=== PATIENT | male | born 1990 | race Caucasian/White ===

== ENCOUNTER 2018-03-05 01:25 | Emergency (ER) | payer SELFPAY ==
[~2018-03-05] VITALS: Ht 165.1 cm; Wt 58.0 kg
--- NOTE | 2018-03-05 01:42 | PHYS DOC ---
Adult General Chief Complaint Chief Complaint vomiting HPI HPI 27 years old male presented to the emergency department with vomiting and diarrhea started this morning described his diarrhea as watery loose no fever no chills no urgency no frequency no hematuria Review of Systems Review of Systems Constitutional: Denies fever or chills [] Eyes: Denies change in visual acuity, redness, or eye pain [] HENT: Denies nasal congestion or sore throat [] Respiratory: Denies cough or shortness of breath [] Cardiovascular: No additional information not addressed in HPI [] GI: Denies abdominal pain, : Denies dysuria or hematuria [] Musculoskeletal: Denies back pain or joint pain [] Integument: Denies rash or skin lesions [] Neurologic: Denies headache, focal weakness or sensory changes [] Endocrine: Denies polyuria or polydipsia [] All other systems were reviewed and found to be within normal limits, except as documented in this note. Current Medications Current Medications Current Medications Medications (Trade) Dose Ordered Sig/Maria E Start Time Stop Time Status Last Admin Dose Admin Ondansetron HCl (Starter Pack - Zofran Odt) 1 startpack 1X ONCE 03/05/18 02:30 03/05/18 02:31 UNV Ondansetron HCl (Zofran) 4 mg 1X ONCE 03/05/18 02:00 03/05/18 02:01 DC 03/05/18 02:01 4 MG Sodium Chloride 1,000 ml @ 1,000 mls/hr 1X ONCE 03/05/18 02:30 03/05/18 03:29 UNV Allergies Allergies Allergies Coded Allergies Type Severity Reaction Last Updated Verified No Known Drug Allergies 03/05/18 No Physical Exam Physical Exam Constitutional: Well developed, well nourished, no acute distress, non-toxic appearance. [] HENT: Normocephalic, atraumatic, bilateral external ears normal, oropharynx moist, no oral exudates, nose normal. [] Eyes: PERRLA, EOMI, conjunctiva normal, no discharge. [] Neck: Normal range of motion, no tenderness, supple, no stridor. [] Cardiovascular:Heart rate regular rhythm, no murmur [] Lungs & Thorax: Bilateral breath sounds clear to auscultation [] Abdomen: Bowel sounds normal, soft, no tenderness, no masses, no pulsatile masses. [] Skin: Warm, dry, no erythema, no rash. [] Back: No tenderness, no CVA tenderness. [] Extremities: No tenderness, no cyanosis, no clubbing, ROM intact, no edema. [] Neurologic: Alert and oriented X 3, normal motor function, normal sensory function, no focal deficits noted. [] Psychologic: Affect normal, judgement normal, mood normal. [] Current Patient Data Vital Signs Vital Signs Date Time Temp Pulse Resp B/P (MAP) Pulse Ox O2 Delivery O2 Flow Rate FiO2 03/05/18 01:25 98.3 61 18 99 Room Air Lab Results Laboratory Tests Test 03/05/18 01:45 White Blood Count 14.2 x10^3/uL (4.0-11.0) H Red Blood Count 4.64 x10^6/uL (4.30-5.70) Hemoglobin 16.6 g/dL (13.0-17.5) Hematocrit 47.9 % (39.0-53.0) Mean Corpuscular Volume 103 fL (79-100) H Mean Corpuscular Hemoglobin 36 pg (25-35) H Mean Corpuscular Hemoglobin Concent 35 g/dL (31-37) Red Cell Distribution Width 15.1 % (11.5-14.5) H Platelet Count 148 x10^3/uL (140-400) Neutrophils (%) (Auto) 89 % (31-73) H Lymphocytes (%) (Auto) 5 % (24-48) L Monocytes (%) (Auto) 5 % (0-9) Eosinophils (%) (Auto) 0 % (0-3) Basophils (%) (Auto) 1 % (0-3) Neutrophils # (Auto) 12.6 x10^3uL (1.8-7.7) H Lymphocytes # (Auto) 0.7 x10^3/uL (1.0-4.8) L Monocytes # (Auto) 0.8 x10^3/uL (0.0-1.1) Eosinophils # (Auto) 0.0 x10^3/uL (0.0-0.7) Basophils # (Auto) 0.1 x10^3/uL (0.0-0.2) Sodium Level 141 mmol/L (136-145) Potassium Level 3.7 mmol/L (3.5-5.1) Chloride Level 95 mmol/L (98-107) L Carbon Dioxide Level 20 mmol/L (21-32) L Anion Gap 26 (6-14) H Blood Urea Nitrogen 11 mg/dL (8-26) Creatinine 1.1 mg/dL (0.7-1.3) Estimated GFR (Cockcroft-Gault) 79.7 Glucose Level 110 mg/dL (70-99) H Calcium Level 10.2 mg/dL (8.5-10.1) H EKG EKG [] Radiology/Procedures Radiology/Procedures [] Course & Med Decision Making Course & Med Decision Making Pertinent Labs and Imaging studies reviewed. (See chart for details) [] Final Impression Final Impression [] Problems: (1) Vomiting Qualifiers: Qualified Codes: R11.14 - Bilious vomiting Dragon Disclaimer Dragon Disclaimer This electronic medical record was generated, in whole or in part, using a voice recognition dictation system. ENOCH LIRA MD Mar 05, 2018 01:42
[2018-03-05] MEDS ORDERED: ONDA4TAB7 PO (01:43)
[2018-03-05 02:00] LABS: BASO # 0.1 x10^3/uL (0.0-0.2); BASO % 1 % (0-3); EOS % 0 % (0-3); HEMATOCRIT 47.9 % (39.0-53.0); HEMOGLOBIN 16.6 g/dL (13.0-17.5); LYMPH # 0.7 x10^3/uL (1.0-4.8); LYMPH % 5 % (24-48); MEAN CORPUSCULAR HEMOGLOBIN 36 pg (25-35); MEAN CORPUSCULAR HGB CONC 35 g/dL (31-37); MEAN CORPUSCULAR VOLUME 103 fL (79-100); MONO # 0.8 x10^3/uL (0.0-1.1); MONO % 5 % (0-9); NEUT # 12.6 x10^3uL (1.8-7.7); NEUT % 89 % (31-73); PLATELET COUNT 148 x10^3/uL (140-400); RED BLOOD COUNT 4.64 x10^6/uL (4.30-5.70); RED CELL DISTRIBUTION WIDTH 15.1 % (11.5-14.5); WHITE BLOOD COUNT 14.2 x10^3/uL (4.0-11.0)
[2018-03-05] MEDS ORDERED: IV NORMAL SALINE 1,000ML 1,000 ML IV ONE ×3 (02:00→03:00)
[2018-03-05] MEDS ORDERED: ONDANSETRON PF 4 MG/2 ML VIAL. IV ONE (02:00)
[2018-03-05 02:08] LABS: CALCIUM 10.2 mg/dL (8.5-10.1); CREATININE 1.1 mg/dL (0.7-1.3); GFR 79.7; POTASSIUM 3.7 mmol/L (3.5-5.1)
[2018-03-05] MEDS ORDERED: ONDANSETRON 4MG ODT 4TABLET STARTPACK. PO ONE (03:00)
[2018-03-05 03:03] VITALS: BP 121/52
== END 2018-03-05 03:20 | disposition home or self-care (01) ==
LOC: ER 01:25
DX: R11.14 Bilious vomiting (principal); R19.7 Diarrhea, unspecified
CPT/HCPCS: 36415; 80048; 85025; 96361; 96374; 99283; J2405; Q0162; J7030

== ENCOUNTER 2019-04-22 21:26 | Emergency (ER) | payer SELFPAY ==
[~2019-04-22] VITALS: Ht 165.1 cm; Wt 61.8 kg
[~2019-04-22 21:26] MED LIST: ONDA4TAB7 PO
--- NOTE | 2019-04-22 21:36 | PHYS DOC ---
Past History Past Medical History: No Pertinent History Past Surgical History: No Surgical History Smoking: Cigarettes Alcohol Use: Occasionally Drug Use: Cocaine, Marijuana, Opiates Adult General Chief Complaint Chief Complaint: NAUSEA/VOMITING/DIARRHEA.. " I been sick all day... some stomach pain... I had something like this before.. I was in here in Feb. ...a year or two ago.. I got better with fluids. and something theygave me for nausea. ...." [facility] HPI Patient is a 28 year old male who presents with above hx and complaints nausea, vomiting, malaise, fevers, generalized abdomen pain, arthralgia, and myalgia.. Patient did not get a flu vaccination this season. Patient states he had a previous similar incident back in February a year or 2 ago. He states that episode resolved with fluids and medicines given in the emergency department. Patient advise been sick for the last 3 days. Patient denies any intake of bad food. Patient denies any travel. Patient denies any specific ill contacts. Patient does smoke tobacco. Does smoke marijuana every morning when he wakes up.. Patient denies any history of colitis or inflammatory bowel disorders with him or family members. Patient does not follow with a primary care currently. Review of Systems Review of Systems Constitutional: Complaints of fever or chills [] Eyes: Denies change in visual acuity, redness, or eye pain [] HENT: Complains of nasal congestion and sore throat [] Respiratory: Complaints of a nonproductive cough Cardiovascular: No additional information not addressed in HPI [] GI: Plaints of generalized abdominal pain, nausea, vomiting,. Denies bloody stools or diarrhea [] : Denies dysuria or hematuria [] Musculoskeletal: Denies back pain or joint pain [] Integument: Denies rash or skin lesions [] Neurologic: Denies headache, focal weakness or sensory changes [] Endocrine: Denies polyuria or polydipsia [] All other systems were reviewed and found to be within normal limits, except as documented in this note. Family History Family History Noncontributory to presentation Current Medications Current Medications See nursing for home medications Allergies Allergies Allergies Coded Allergies Type Severity Reaction Last Updated Verified No Known Drug Allergies 03/05/18 No Physical Exam Physical Exam Constitutional: Moderate acute distress, non-toxic appearance. [] HENT: Normocephalic, atraumatic, bilateral external ears normal, oropharynx dry, no oral exudates, nose normal. [] Eyes: PERRLA, EOMI, conjunctiva normal, no discharge. [] Neck: Normal range of motion, no tenderness, supple, no stridor. [] Cardiovascular: Tachycardia Heart rate regular rhythm, no murmur [] Lungs & Thorax: Bilateral breath sounds equal at apex with scattered wheezes on auscultation [] Abdomen: Bowel sounds hyperactive, soft, generalized tenderness, no masses, no pulsatile masses. [] No findings of specific pain on rebound. Circumcised male testicles descended Skin: Warm, dry, no erythema, no rash. Tattoos Back: No tenderness, no CVA tenderness. [] Extremities: No tenderness, no cyanosis, no clubbing, ROM intact, no edema. [] No psoas sign. Neurologic: Alert and oriented X 3, normal motor function, normal sensory function, no focal deficits noted. [] Psychologic: Affect anxious, judgement normal, mood normal. [] EKG EKG [] Radiology/Procedures Radiology/Procedures [][address] [address] IMAGING REPORT Signed PATIENT: JACKIE BURDEN ACCOUNT: [id number] : 1990 LOCATION: ER AGE: 28 SEX: M EXAM STATUS: REG ER ORD. PHYSICIAN: BRITTNEY GOMEZ MD REASON: Chest and abdomen pain, nausea, vomiting PROCEDURE: ACUTE ABDOMEN SERIES Exam: Acute abdominal series INDICATION: Chest and abdomen pain TECHNIQUE: Frontal view of chest with upright and supine views of the abdomen Comparisons: None FINDINGS: The cardiomediastinal silhouette and pulmonary vessels are within normal limits. The lung and pleural spaces are clear. Air and stool are noted throughout the colon to level the rectum in a nonobstructive bowel gas pattern. No suspicious masses or calcifications. No free air. Visualized osseous structures are unremarkable. IMPRESSION: 1. No acute cardiopulmonary process. 2. Nonobstructive bowel gas pattern. Electronically signed by: Taisha Lawrence MD (04/22/2019 10:15 PM) [facility] DICTATED AND SIGNED BY: TAISHA LAWRENCE MD DATE: 04/22/19 2215 CC: BRITTNEY GOMEZ MD; PCP,YULY ~ Course & Med Decision Making Course & Med Decision Making Pertinent Labs and Imaging studies reviewed. (See chart for details) Patient reports marked improvement of symptoms at the end ED visit. Requesting discharge. Patient encouraged to avoid illicit drug use. Patient to push clear fluids next 2 days. No solids or milk products. May use Zofran 8 mg up to 4 times day for active vomiting. Take Tylenol and ibuprofen for discomfort. Follow-up primary care. Must have primary care review ED work up. Recommend repeat CBC to make sure current CBC abnormalities have resolved. Patient encouraged to avoid tobacco and daily marijuana use. Recommend that patient follow-up pending labs. Patient consider HIV testing dependent and risk factors. Advised patient may be presenting with early signs of hepatitis or HIV or white cell line dyscrasias. Impression: 1. Nausea and Vomiting x 3 days 2. Viral Syndrome 3. Dehydration 4. Polysubstance Abuse + Cocaine, MJ, Opiates, Tob. 5. Elevated Cristian T 1.3 and D 0.3 6. Elevated CK 510 7. Elevated Glucose 124 8. Leukocytosis 15.8 9. Hgb Elevate 17.6 10.Macrocytosis 104, Atypical Lymph , increased Gallia and Smudge Cells 11. Thrombocytopenia 133 [] Dragon Disclaimer Dragon Disclaimer This electronic medical record was generated, in whole or in part, using a voice recognition dictation system. Departure Departure: Disposition: 01 HOME/RESIDENCE PRIOR TO ADM Condition: STABLE Referrals: PCP,YULY (PCP) Scripts Ondansetron Hcl (ZOFRAN) 8 Mg Tablet 8 MG PO QIDPRN PRN for active nausea and vomiting, #30 BOTTLE Prov: BRITTNEY GOMEZ MD 04/23/19 Dragon Disclaimer This chart was dictated in whole or in part using Voice Recognition software in a busy, high-work load, and often noisy Emergency Department environment. It may contain unintended and wholly unrecognized errors or omissions. BRITTNEY GOMEZ MD Apr 22, 2019 21:36
[2019-04-22] MEDS ORDERED: IV RINGERS SOLUTION,LACTATED 1,000 ML IV SCH (21:37)
[2019-04-22] MEDS ORDERED: ONDANSETRON PF 4 MG/2 ML VIAL. IVP ONE (21:45)
[2019-04-22] MEDS ORDERED: FAMOTIDINE 20 MG/2 ML VIAL IVP ONE (21:45)
[2019-04-22 21:59] LABS: BARBITURATES NEG (NEG); BENZODIAZEPINES NEG (NEG); CANNABINOIDS POS (NEG); COCAINE POS (NEG); METHADONE NEG (NEG); OPIATES POS (NEG); PHENCYCLIDINE NEG (NEG)
[2019-04-22 22:00] LABS: AMPHETAMINE/METHAMPHETAMINE NEG (NEG)
[2019-04-22 22:10] LABS: BASO # 0.1 x10^3/uL (0.0-0.2); BASO % 0 % (0-3); EOS % 0 % (0-3); HEMATOCRIT 51.7 % (39.0-53.0); HEMOGLOBIN 17.6 g/dL (13.0-17.5); LYMPH # 1.4 x10^3/uL (1.0-4.8); LYMPH % 9 % (24-48); MEAN CORPUSCULAR HEMOGLOBIN 35 pg (25-35); MEAN CORPUSCULAR HGB CONC 34 g/dL (31-37); MEAN CORPUSCULAR VOLUME 104 fL (79-100); MONO % 13 % (0-9); NEUT # 12.4 x10^3uL (1.8-7.7); NEUT % 78 % (31-73); PLATELET COUNT 133 x10^3/uL (140-400); RED BLOOD COUNT 4.99 x10^6/uL (4.30-5.70); RED CELL DISTRIBUTION WIDTH 14.3 % (11.5-14.5); WHITE BLOOD COUNT 15.8 x10^3/uL (4.0-11.0)
[2019-04-22 22:16] LABS: BILIRUBIN,URINE MOD (NEG); CLARITY,URINE HAZY; COLOR,URINE AMBER; GLUCOSE,URINE NEG (NEG); NITRITE,URINE NEG (NEG); UROBILINOGEN,URINE 0.2 mg/dL (0.2 mg/dL)
[2019-04-22 22:17] LABS: AMORPHOUS SEDIMENT,UR PRESENT /HPF; BACTERIA,URINE FEW /HPF (0-FEW); GRANULAR CASTS,URINE OCC /HPF; HYALINE CASTS, URINE FEW /HPF; SQUAMOUS EPITHELIAL CELL,UR OCC /LPF; WBC,URINE OCC /HPF (0-4)
--- NOTE | 2019-04-22 22:18 | RAD ---
Exam: Acute abdominal series INDICATION: Chest and abdomen pain TECHNIQUE: Frontal view of chest with upright and supine views of the abdomen Comparisons: None FINDINGS: The cardiomediastinal silhouette and pulmonary vessels are within normal limits. The lung and pleural spaces are clear. Air and stool are noted throughout the colon to level the rectum in a nonobstructive bowel gas pattern. No suspicious masses or calcifications. No free air. Visualized osseous structures are unremarkable. IMPRESSION: 1. No acute cardiopulmonary process. 2. Nonobstructive bowel gas pattern. Electronically signed by: Taisha Rosenthal MD (04/22/2019 10:15 PM) [facility]
[2019-04-22 22:29] LABS: CALCIUM 9.9 mg/dL (8.5-10.1); GFR 88.3
[2019-04-22 22:32] LABS: ALBUMIN 4.6 g/dL (3.4-5.0); DIRECT BILIRUBIN 0.3 mg/dL (0.0-0.2); TOTAL BILIRUBIN 1.3 mg/dL (0.2-1.0)
[2019-04-22 22:33] LABS: POTASSIUM 3.7 mmol/L (3.5-5.1)
[2019-04-22] MEDS ORDERED: MAGNESIUM HYDROXIDE 2,400 MG/30 ML ORAL.SUSP. PO ONE (22:45)
[2019-04-22 23:19] LABS: % ATYL 4 % (0-0); % BANDS 2 % (0-9); % LYMPHS 10 % (24-48); % MONOS 16 % (0-10); % SEGS 68 % (35-66); PLT ESTIMATE DECREASED (ADEQUATE); SMUDGE CELLS PRESENT; STOMATOCYTES FEW
[2019-04-22 23:22] LABS: INFLUENZA A PATIENT NEGATIVE (NEGATIVE); INFLUENZA B PATIENT NEGATIVE (NEGATIVE)
[2019-04-23] MEDS ORDERED: IV RINGERS SOLUTION,LACTATED 1,000 ML IV ONE
[2019-04-23] MEDS ORDERED: ONDA8TAB9 PO (00:03)
[2019-04-23 00:18] VITALS: BP 126/83
== END 2019-04-23 00:36 | disposition home or self-care (01) ==
LOC: ER 21:26
DX: B34.9 Viral infection, unspecified (principal); E86.0 Dehydration; D69.6 Thrombocytopenia, unspecified; F11.10 Opioid abuse, uncomplicated; F12.10 Cannabis abuse, uncomplicated; F14.10 Cocaine abuse, uncomplicated; D72.829 Elevated white blood cell count, unspecified; F17.210 Nicotine dependence, cigarettes, uncomplicated
CPT/HCPCS: 36415; 74022; 80048; 80076; 80307; 81001; 82150; 82550; 83690; 84484; 85007; 85025; 85610; 85730; 86705; 86709; 86803; 87340; 87804; 96361; 96374; 96375; 99285; J2405; J3490; J7120

== ENCOUNTER 2019-08-28 08:58 | Emergency (ER) | payer SELFPAY ==
[~2019-08-28] VITALS: Ht 165.1 cm; Wt 61.4 kg
[~2019-08-28 08:58] MED LIST changes: +ONDA8TAB9 PO
[2019-08-28 09:05] VITALS: BP 136/98
[2019-08-28] MEDS ORDERED: IV NORMAL SALINE 1,000ML 1,000 ML IV SCH (09:15)
--- NOTE | 2019-08-28 09:20 | PHYS DOC ---
Past History Past Medical History: No Pertinent History Past Surgical History: No Surgical History Smoking: Cigarettes Alcohol Use: Occasionally Drug Use: Cocaine, Marijuana, Opiates General Adult EDM: Chief Complaint: GI PROBLEM HPI: HPI: Patient is a 29-year-old male who presents to the emergency department for evaluation. He states that he has had abdominal problems for the past several years, having some vomiting in the morning, until he starts drinking alcohol again, as well as hematochezia which has been present on and off for years. He states that he has not had any dizziness or lightheadedness. He is having no new symptoms at this time, but states his family urged him to come to the emergency department just to "get checked out". He states his last drink was at 1 AM. He drinks at least a pint a day, as well as beers throughout the day, and he drinks a liter of hard liquor at night as well. He states he has been doing this for years. He has not had any hematemesis. There are no alleviating or exacerbating factors to his symptoms. He states he saw a doctor recently for tremors and anxiety and was put on some anxiety medicationBuSpar. He states that he did discuss his alcohol use with the doctor and was told "he needs to cut back". Review of Systems: Review of Systems: Constitutional: Denies fever or chills Eyes: Denies change in visual acuity HENT: Denies nasal congestion or sore throat Respiratory: Denies cough or shortness of breath Cardiovascular: Denies chest pain or edema GI: As per HPI : Denies dysuria Musculoskeletal: Denies back pain or joint pain Integument: Denies rash Neurologic: Denies headache, focal weakness or sensory changes Endocrine: Denies polyuria or polydipsia Lymphatic: Denies swollen glands Psychiatric: Denies depression or anxiety Heart Score: Risk Factors: Risk Factors: DM, Current or recent (<one month) smoker, HTN, HLP, family history of CAD, obesity. Risk Scores: Score 0 - 3: 2.5% MACE over next 6 weeks - Discharge Home Score 4 - 6: 20.3% MACE over next 6 weeks - Admit for Clinical Observation Score 7 - 10: 72.7% MACE over next 6 weeks - Early Invasive Strategies Allergies: Allergies: Allergies Coded Allergies Type Severity Reaction Last Updated Verified No Known Drug Allergies 03/05/18 No Physical Exam: PE: PHYSICAL EXAM: CONSTITUTIONAL: Well developed, well nourished HEAD: normocephalic, atraumatic EENT: PERRL, EOMI. Conjunctivae normal color, sclerae non-icteric; moist mucous membranes. NECK: Supple, non-tender; no meningismus. LUNGS: Lungs CTA, breathing even and unlabored. Normal air movement. HEART: Regular rate and rhythm, no murmur CHEST: No deformity; non-tender ABDOMEN: The abdomen is soft, there is very mild right upper quadrant tenderness to palpation without rebound or guarding, the remainder the abdomen is soft and non-tender, no masses or bruits. Normal bowel sounds are present. EXTREM: Normal ROM; no deformity, no calf tenderness. Normal pulses palpable in all extremities. There is no pedal edema. SKIN: No rash; no diaphoresis NEURO: Alert; normal speech and cognition; CN's grossly intact; strength grossly intact without focal deficit. BACK: No CVA TTP. Current Patient Data: Labs: Laboratory Tests Test 08/28/19 09:20 White Blood Count 6.4 x10^3/uL Red Blood Count 4.44 x10^6/uL Hemoglobin 16.5 g/dL Hematocrit 48.2 % Mean Corpuscular Volume 109 fL Mean Corpuscular Hemoglobin 37 pg Mean Corpuscular Hemoglobin Concent 34 g/dL Red Cell Distribution Width 16.0 % Platelet Count 94 x10^3/uL Neutrophils (%) (Auto) 38 % Lymphocytes (%) (Auto) 41 % Monocytes (%) (Auto) 15 % Eosinophils (%) (Auto) 4 % Basophils (%) (Auto) 1 % Neutrophils # (Auto) 2.4 x10^3uL Lymphocytes # (Auto) 2.6 x10^3/uL Monocytes # (Auto) 1.0 x10^3/uL Eosinophils # (Auto) 0.3 x10^3/uL Basophils # (Auto) 0.1 x10^3/uL Urine Collection Type Unknown Urine Color Yellow Urine Clarity Hazy Urine pH 5.5 Urine Specific [place] >=1.030 Urine Protein >100 mg/dl Urine Glucose (UA) Neg mg/dL Urine Ketones (Stick) Trace mg/dL Urine Blood Trace Urine Nitrite Neg Urine Bilirubin Neg Urine Urobilinogen Dipstick 0.2 mg/dL Urine Leukocyte Esterase Neg Urine RBC 3-5 /HPF Urine WBC Occ /HPF Urine Squamous Epithelial Cells Few /LPF Urine Bacteria 0 /HPF Urine Mucus Marked /LPF Sodium Level 142 mmol/L Potassium Level 3.6 mmol/L Chloride Level 101 mmol/L Carbon Dioxide Level 27 mmol/L Anion Gap 14 Blood Urea Nitrogen 3 mg/dL Creatinine 0.8 mg/dL Estimated GFR (Cockcroft-Gault) 113.5 BUN/Creatinine Ratio 4 Glucose Level 130 mg/dL Calcium Level 9.0 mg/dL Magnesium Level 1.7 mg/dL Total Bilirubin 0.2 mg/dL Aspartate Amino Transf (AST/SGOT) 206 U/L Alanine Aminotransferase (ALT/SGPT) 82 U/L Alkaline Phosphatase 97 U/L Total Protein 8.3 g/dL Albumin 4.0 g/dL Albumin/Globulin Ratio 0.9 Lipase 120 U/L Urine Opiates Screen Neg Urine Methadone Screen Neg Urine Barbiturates Neg Urine Phencyclidine Screen Neg Urine Amphetamine/Methamphetamine Neg Urine Benzodiazepines Screen Neg Urine Cocaine Screen Neg Urine Cannabinoids Screen Pos Ethyl Alcohol Level 269 mg/dL Urine Ethyl Alcohol Pos Current Medications Medications (Trade) Dose Ordered Sig/Maria E Route PRN Reason Start Time Stop Time Status Last Admin Dose Admin Sodium Chloride 1,000 ml @ 1,000 mls/hr Q1H IV 08/28/19 09:15 08/28/19 10:14 DC 08/28/19 09:24 EKG: EKG: [] Radiology/Procedures: Radiology/Procedures: [] Course & Med Decision Making: Course & Med Decision Making Pertinent Lab studies reviewed. (See chart for details) [] The patient's condition remains stable. I discussed the importance of alcohol rehab and abstinence of alcohol for his long-term health, consequences of failure to do so, the need for close outpatient follow-up with GI and return precautions in detail. He will be given resources for alcohol rehab. Dragon Disclaimer: Dragmyke Disclaimer: This electronic medical record was generated, in whole or in part, using a voice recognition dictation system. Departure Departure: Impression: Primary Impression: Alcoholism Additional Impressions: Abdominal pain Alcoholic hepatitis Disposition: HOME/RESIDENCE PRIOR TO ADM Condition: STABLE Referrals: MARIAH JOHNSTON MD Patient Instructions: Alcohol Problems, Alcoholic Hepatitis-Brief, Alcoholic Li med Disease, [id number], Chronic Alcoholism Additional Instructions: It is critically important that you stop drinking alcohol, failure to do so will result in liver failure with long-term health consequences including early . Use the resources provided to get professional help quitting alcohol. It is difficult to do so on your own. Follow-up with gastroenterology at [facility]. Please call [phone] to schedule an appointment. Justification of Admission: Justification of Admission: Justification of Admission Dx: N/A EDDIE COUCH MD Aug 28, 2019 09:20
[2019-08-28 09:52] LABS: BASO # 0.1 x10^3/uL (0.0-0.2); BASO % 1 % (0-3); EOS # 0.3 x10^3/uL (0.0-0.7); EOS % 4 % (0-3); HEMATOCRIT 48.2 % (39.0-53.0); HEMOGLOBIN 16.5 g/dL (13.0-17.5); LYMPH # 2.6 x10^3/uL (1.0-4.8); LYMPH % 41 % (24-48); MEAN CORPUSCULAR HEMOGLOBIN 37 pg (25-35); MEAN CORPUSCULAR HGB CONC 34 g/dL (31-37); MEAN CORPUSCULAR VOLUME 109 fL (79-100); MONO % 15 % (0-9); NEUT # 2.4 x10^3uL (1.8-7.7); NEUT % 38 % (31-73); PLATELET COUNT 94 x10^3/uL (140-400); RED BLOOD COUNT 4.44 x10^6/uL (4.30-5.70); WHITE BLOOD COUNT 6.4 x10^3/uL (4.0-11.0)
[2019-08-28 10:00] LABS: CREATININE 0.8 mg/dL (0.7-1.3); GFR 113.5; POTASSIUM 3.6 mmol/L (3.5-5.1)
[2019-08-28 10:07] LABS: ALBUMIN/GLOBULIN RATIO 0.9 (1.0-1.7); MAGNESIUM 1.7 mg/dL (1.8-2.4); TOTAL BILIRUBIN 0.2 mg/dL (0.2-1.0); TOTAL PROTEIN 8.3 g/dL (6.4-8.2)
[2019-08-28 10:15] LABS: BARBITURATES NEG (NEG); BENZODIAZEPINES NEG (NEG); CANNABINOIDS POS (NEG); COCAINE NEG (NEG); METHADONE NEG (NEG); OPIATES NEG (NEG); PHENCYCLIDINE NEG (NEG)
[2019-08-28 10:16] LABS: CLARITY,URINE HAZY; COLOR,URINE YELLOW
[2019-08-28 10:17] LABS: BACTERIA,URINE 0 /HPF (0-FEW); BILIRUBIN,URINE NEG (NEG); GLUCOSE,URINE NEG (NEG); NITRITE,URINE NEG (NEG); SQUAMOUS EPITHELIAL CELL,UR FEW /LPF; UROBILINOGEN,URINE 0.2 mg/dL (0.2 mg/dL); WBC,URINE OCC /HPF (0-4)
[2019-08-28 10:37] LABS: AMPHETAMINE/METHAMPHETAMINE NEG (NEG)
== END 2019-08-28 11:14 | disposition home or self-care (01) ==
LOC: ER 08:58
DX: K70.10 Alcoholic hepatitis without ascites (principal); F10.20 Alcohol dependence, uncomplicated; R10.11 Right upper quadrant pain; R11.10 Vomiting, unspecified; F17.210 Nicotine dependence, cigarettes, uncomplicated; Y90.8 Blood alcohol level of 240 mg/100 ml or more
CPT/HCPCS: 36415; 80053; 80307; 81001; 83690; 83735; 85025; 85610; 85730; 96360; 99283; G0480; 96361; J7030

== ENCOUNTER 2019-10-01 08:31 | Inpatient (IN) | payer SELFPAY ==
[~2019-10-01] VITALS: Ht 165.1 cm; Wt 59.7 kg
[2019-10-01] MEDS ORDERED: ONDANSETRON PF 4 MG/2 ML VIAL. IVP ONE (09:00)
[2019-10-01] MEDS ORDERED: IV NORMAL SALINE 1,000ML 1,000 ML IV ONE ×2 (09:00→10:00)
[2019-10-01 09:15] LABS: BASO # 0.1 x10^3/uL (0.0-0.2); BASO % 0 % (0-3); EOS % 0 % (0-3); HEMOGLOBIN 17.9 g/dL (13.0-17.5); LYMPH # 0.8 x10^3/uL (1.0-4.8); LYMPH % 4 % (24-48); MEAN CORPUSCULAR HEMOGLOBIN 38 pg (25-35); MEAN CORPUSCULAR HGB CONC 35 g/dL (31-37); MEAN CORPUSCULAR VOLUME 110 fL (79-100); MONO # 1.2 x10^3/uL (0.0-1.1); MONO % 7 % (0-9); NEUT # 15.7 x10^3uL (1.8-7.7); NEUT % 88 % (31-73); PLATELET COUNT 123 x10^3/uL (140-400); RED BLOOD COUNT 4.71 x10^6/uL (4.30-5.70); RED CELL DISTRIBUTION WIDTH 16.9 % (11.5-14.5); WHITE BLOOD COUNT 17.7 x10^3/uL (4.0-11.0)
[2019-10-01 09:26] LABS: CALCIUM 10.1 mg/dL (8.5-10.1); CREATININE 1.6 mg/dL (0.7-1.3); POTASSIUM 3.8 mmol/L (3.5-5.1)
[2019-10-01 09:31] LABS: ALBUMIN 4.7 g/dL (3.4-5.0); ALBUMIN/GLOBULIN RATIO 0.9 (1.0-1.7); TOTAL PROTEIN 9.8 g/dL (6.4-8.2)
[2019-10-01] MEDS ORDERED: IV DEXTROSE 5 %-0.45 % NACL 1,000 ML IV ONE (10:00)
--- NOTE | 2019-10-01 10:13 | PHYS DOC ---
Past History Past Medical History: Other Additional Past Medical Histor: alcohol abuse Past Surgical History: No Surgical History Smoking: Cigarettes Alcohol Use: Heavy Drug Use: Cocaine, Marijuana, Opiates General Adult EDM: Chief Complaint: NAUSEA/VOMITING/DIARRHEA HPI: HPI: Patient is a 29 old male presenting with nausea vomiting abdominal pain patient drinks heavily at least a pint a day if not more. He has not drank in 3 days he is having a lot of vomiting he said he just turned, dark brown no blood that he saw although does not know the color of the stool describes diffuse abdominal pain worse in the epigastric area. Slowly getting worse he feels like it is abdominal muscle pain from vomiting so much no chest pain or shortness of breath past medical history none medications none allergies none social history just marijuana no other drugs Review of Systems: Review of Systems: Constitutional: Denies fever or chills Eyes: Denies change in visual acuity HENT: Denies nasal congestion or sore throat Respiratory: Denies cough or shortness of breath Cardiovascular: Denies chest pain or edema GI: Neurologic: Denies headache, focal weakness or sensory changes Endocrine: Denies polyuria or polydipsia Lymphatic: Denies swollen glands Psychiatric: Denies depression or anxiety Heart Score: Risk Factors: Risk Factors: DM, Current or recent (<one month) smoker, HTN, HLP, family history of CAD, obesity. Risk Scores: Score 0 - 3: 2.5% MACE over next 6 weeks - Discharge Home Score 4 - 6: 20.3% MACE over next 6 weeks - Admit for Clinical Observation Score 7 - 10: 72.7% MACE over next 6 weeks - Early Invasive Strategies Current Medications: Current Meds: Current Medications Medications (Trade) Dose Ordered Sig/Maria E Start Time Stop Time Status Last Admin Dose Admin Dextrose/Sodium Chloride 1,000 ml @ 125 mls/hr 1X ONCE 10/01/19 10:00 10/01/19 17:59 UNV Lorazepam (Ativan Inj) 2 mg 1X ONCE 10/01/19 10:00 10/01/19 10:01 UNV Ondansetron HCl (Zofran) 4 mg 1X ONCE 10/01/19 09:00 10/01/19 09:01 DC 10/01/19 09:05 4 MG Sodium Chloride 1,000 ml @ 1,000 mls/hr 1X ONCE 7/15/20 10:00 10/01/19 10:59 UNV Allergies: Allergies: Allergies Coded Allergies Type Severity Reaction Last Updated Verified No Known Drug Allergies 10/01/19 No Physical Exam: PE: Constitutional: Well developed, ill appearing shaky and tremulous HENT: Normocephalic, atraumatic, bilateral external ears normal, oropharynx moist, no oral exudates, nose normal. [] Eyes: PERRLA, EOMI, conjunctiva normal, no discharge. [] Neck: Normal range of motion, no tenderness, supple, no stridor. [] Cardiovasculatachy no murmur noted. Lungs & Thorax: Bilateral breath sounds clear to auscultation [] Abdomen: Bowel sounds normal, soft, diffuse but mostly epigastric tenderness, no masses, no pulsatile masses. [] Skin: Warm, dry, no erythema, no rash. [] Back: No tenderness, no CVA tenderness. [] Extremities: No tenderness, no cyanosis, no clubbing, ROM intact, no edema. [] Neurologic: Alert and oriented X 3, normal motor function, normal sensory function, no focal deficits noted. [] Psychologic: Affect normal, judgement normal, mood normal. [] Current Patient Data: Labs: Laboratory Tests Test 10/01/19 08:59 White Blood Count 17.7 x10^3/uL (4.0-11.0) H Red Blood Count 4.71 x10^6/uL (4.30-5.70) Hemoglobin 17.9 g/dL (13.0-17.5) H Hematocrit 52.0 % (39.0-53.0) Mean Corpuscular Volume 110 fL (79-100) H Mean Corpuscular Hemoglobin 38 pg (25-35) H Mean Corpuscular Hemoglobin Concent 35 g/dL (31-37) Red Cell Distribution Width 16.9 % (11.5-14.5) H Platelet Count 123 x10^3/uL (140-400) L Neutrophils (%) (Auto) 88 % (31-73) H Lymphocytes (%) (Auto) 4 % (24-48) L Monocytes (%) (Auto) 7 % (0-9) Eosinophils (%) (Auto) 0 % (0-3) Basophils (%) (Auto) 0 % (0-3) Neutrophils # (Auto) 15.7 x10^3uL (1.8-7.7) H Lymphocytes # (Auto) 0.8 x10^3/uL (1.0-4.8) L Monocytes # (Auto) 1.2 x10^3/uL (0.0-1.1) H Eosinophils # (Auto) 0.0 x10^3/uL (0.0-0.7) Basophils # (Auto) 0.1 x10^3/uL (0.0-0.2) Platelet Estimate Pending Sodium Level 141 mmol/L (136-145) Potassium Level 3.8 mmol/L (3.5-5.1) Chloride Level 91 mmol/L (98-107) L Carbon Dioxide Level 13 mmol/L (21-32) L Anion Gap 37 (6-14) H Blood Urea Nitrogen 15 mg/dL (8-26) Creatinine 1.6 mg/dL (0.7-1.3) H Estimated GFR (Cockcroft-Gault) 51.0 BUN/Creatinine Ratio 9 (6-20) Glucose Level 102 mg/dL (70-99) H Calcium Level 10.1 mg/dL (8.5-10.1) Total Bilirubin 1.0 mg/dL (0.2-1.0) Aspartate Amino Transferase (AST) 134 U/L (15-37) H Alanine Aminotransferase (ALT) 49 U/L (16-63) Alkaline Phosphatase 138 U/L (46-116) H Total Protein 9.8 g/dL (6.4-8.2) H Albumin 4.7 g/dL (3.4-5.0) Albumin/Globulin Ratio 0.9 (1.0-1.7) L Lipase 58 U/L (73-393) L Vital Signs: Vital Signs Date Time Temp Pulse Resp B/P (MAP) Pulse Ox O2 Delivery O2 Flow Rate FiO2 10/01/19 09:52 122 18 126/87 (100) 98 Room Air 10/01/19 08:31 98.0 On my evaluation the pulse was 145 EKG: EKG: EKG showed a very likely sinus tach QTc 416 no STEMI [] Radiology/Procedures: Radiology/Procedures: [] Impressions: Impression: 1. There is no significant localized inflammatory type change about the bowel, possible degree of long segment distal small bowel wall thickening and also of the ascending colon as could be seen with enterocolitis in the appropriate clinical setting. There is no CT evidence of acute appendicitis. 2. There is diffuse prominent hepatic steatosis. There is appearance of degree of distal esophageal wall thickening which could be seen with esophagitis in the appropriate clinical setting. 3. 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 Electronically signed by: Shayne Washington MD (10/01/2019 10:54 AM) [id number] Course & Med Decision Making: Course & Med Decision Making Pertinent Labs and Imaging studies reviewed. (See chart for details) [] 29-year-old male with alcohol withdrawal vomiting abdominal discomfort likely AKA severely elevated anion gap of 37 bicarb is only 13 added on lactic acid acetaminophen and salicylate CT abdomen pelvis second liter of saline start with D5 half-normal for maintenance as well to treat the likely alcoholic ketoacidosis add on urinalysis patient will require admission heart rate is still in the 120s at rest goes up to 140 when he talks to me on reevaluation at 10 AM. Lactic acid was mildly elevated patient did receive aggressive IV fluid but I believe that lactic acid is more related to dehydration in the setting of alcohol withdrawal rather than acute sepsis. Patient felt somewhat better in the emergency room after treatment noted the vomiting there was some kind of dark brown color to it esophagitis noted on CT does not know the color of stool but with hemoglobin of 17 I doubt an acute GI bleed Protonix bolus was given in the emergency room. Added on blood cultures as well as ceftriaxone and Flagyl to cover for the possible diagnosis of enterocolitis that was seen on CT scan. Diagnosis: Alcoholic ketoacidosis, hypomagnesemia, alcohol withdrawal. I spoke with Dr. Paz at 11:15 AM accepted the patient for admission. Pete Disclaimer: Pete Disclaimer: This electronic medical record was generated, in whole or in part, using a voice recognition dictation system. Departure Departure: Impression: Primary Impression: Alcohol withdrawal Additional Impression: Alcoholic ketoacidosis Disposition: ADMITTED INPATIENT Admitting Physician: Bryn Sepulveda Condition: STABLE Referrals: PCP,NO (PCP) Justification of Admission: Justification of Admission: Justification of Admission Dx: Yes Comments: alcoholic ketoacidosis with anion gap 37. MOHSEN BORGES MD Oct 01, 2019 10:13
[2019-10-01 10:24] LABS: ACETAMIN < 2.0 mcg/mL (10-30); SALIC < 2.8 mg/dL (2.8-20.0)
[2019-10-01] MEDS ORDERED: IOHEXOL 300 MG/ML 75 ML VIAL. IV ONE (10:30)
--- NOTE | 2019-10-01 10:57 | RAD ---
CT abdomen and pelvis with contrast History: Diffuse abdominal pain, elevated WBC Technique: After the administration of intravenous contrast, CT imaging was performed of the abdomen and pelvis. No oral contrast was given. Multiplanar images are reviewed. Exposure: One or more of the following individualized dose reduction techniques were utilized for this examination: 1. Automated exposure control 2. Adjustment of the mA and/or kV according to patient size 3. Use of iterative reconstruction technique. Comparison: None Findings: There is motion degradation. There is no significant abnormality of the limited visualized lung bases. There is appearance of degree of distal esophageal wall thickening. There is diffuse prominent hepatic steatosis. Gallbladder is present without obvious intraluminal abnormality by CT. No significant focal abnormality is identified of the pancreas or spleen. Both kidneys enhance, no hydronephrosis. Accurate evaluation of bowel is limited without oral contrast. Bowel is not significantly dilated. No free air or free fluid is identified. There is appearance of degree of long segment distal small bowel wall thickening although poorly characterized on this exam. There could also be degree of ascending colonic wall thickening although not well distended for exam. Normal caliber appendix is believed to be visualized without adjacent localized inflammatory change. There is a subtle nonspecific lytic focus of the left iliac bone about 0.9 cm image 56 series 2. There is left S1 spondylolysis, transitional anatomy of the lumbar spine. Urinary bladder is somewhat distended. Impression: 1. There is no significant localized inflammatory type change about the bowel, possible degree of long segment distal small bowel wall thickening and also of the ascending colon as could be seen with enterocolitis in the appropriate clinical setting. There is no CT evidence of acute appendicitis. 2. There is diffuse prominent hepatic steatosis. There is appearance of degree of distal esophageal wall thickening which could be seen with esophagitis in the appropriate clinical setting. 3. 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 Electronically signed by: Shayne Washington MD (10/01/2019 10:54 AM) [id number]
[2019-10-01] MEDS ORDERED: MAGNESIUM SULFATE 1GM 100 ML IV ONE (11:15)
[2019-10-01] MEDS ORDERED: PANTOPRAZOLE IV 40 MG VIAL. IVP ONE (11:15)
[2019-10-01] MEDS ORDERED: cefTRIAXone SODIUM 1 GM VIAL ONE (11:42)
[2019-10-01] MEDS ORDERED: IV NORMAL SALINE 50ML 50 ML ONE (11:42)
[2019-10-01 12:16] LABS: BARBITURATES NEG (NEG); BENZODIAZEPINES NEG (NEG); CANNABINOIDS NEG (NEG); COCAINE NEG (NEG); METHADONE NEG (NEG); OPIATES NEG (NEG); PHENCYCLIDINE NEG (NEG)
[2019-10-01 12:19] LABS: BILIRUBIN,URINE NEG (NEG); CLARITY,URINE CLEAR; COLOR,URINE YELLOW; GLUCOSE,URINE NEG (NEG); NITRITE,URINE NEG (NEG); UROBILINOGEN,URINE 0.2 mg/dL (0.2 mg/dL)
[2019-10-01 12:20] LABS: BACTERIA,URINE 0 /HPF (0-FEW); HYALINE CASTS, URINE MANY /HPF; WBC,URINE OCC /HPF (0-4)
[2019-10-01 12:31] LABS: AMPHETAMINE/METHAMPHETAMINE NEG (NEG)
[2019-10-01] MEDS ORDERED: diphenhydrAMINE 50 MG/ML VIAL IVP PRN (13:00)
[2019-10-01] MEDS ORDERED: LORazepam 1 MG TABLET PO PRN (13:00)
[2019-10-01] MEDS ORDERED: cloNIDine HCL 0.1 MG TABLET PO PRN (13:00)
[2019-10-01] MEDS ORDERED: chlordiazePOXIDE HCL 25 MG CAPSULE PO PRN ×2 (13:00)
[2019-10-01] MEDS ORDERED: HALOPERIDOL LACT 5 MG/ML VIAL. IM PRN (13:00)
--- NOTE | 2019-10-01 13:12 | EKG ---
[address] [address] Test Date: 2019-10-01 Test Time: 08:49:02 Pat Name: JACKIE BURDEN Department: Room: Gender: M Learning And Development Specialist: : 1990 Requested By: MOHSEN BORGES Order Number: [id number] Reading MD: Measurements Intervals Media Rate: 149 P: FL: QRS: 94 QRSD: 74 T: 64 QT: 262 QTc: 416 Interpretive Statements SUPRAVENTRICULAR TACHYCARDIA RIGHTWARD AXIS NO SPECIFIC ECG ABNORMALITIES RI6.02 No previous ECG available for comparison
[2019-10-01] MEDS ORDERED: MVI, ADULT NO.4 WITH VIT K 10 ML, THIAMINE INJ 100 MG, FOLIC ACID INJ 1 MG in IV NORMAL... IV SCH ×4 (14:00)
[2019-10-01 14:29] VITALS: BP 110/72
[2019-10-01 14:44] LABS: ALBUMIN 3.5 g/dL (3.4-5.0); DIRECT BILIRUBIN 0.2 mg/dL (0.0-0.2); TOTAL BILIRUBIN 0.7 mg/dL (0.2-1.0); TOTAL PROTEIN 7.5 g/dL (6.4-8.2)
[2019-10-01 16:35] LABS: % BANDS 4 % (0-9); % LYMPHS 4 % (24-48); % MONOS 3 % (0-10); % SEGS 89 % (35-66)
[2019-10-01 16:36] LABS: PLT ESTIMATE DECREASED (ADEQUATE)
[2019-10-01] MEDS: LORazepam 1 MG TABLET PO PRN ×2 (17:27→21:11)
[2019-10-01] MEDS ORDERED: ONDANSETRON ODT 4 MG TAB.RAPDIS PO PRN (18:15)
--- NOTE | 2019-10-01 18:36 | HP ---
ADMIT DATE: 10/01/2019 HISTORY OF PRESENT ILLNESS: The patient is a 29-year-old male patient who came to the Emergency Room complaining of nausea, vomiting and diarrhea. He also complained of abdominal pain. He apparently is drinking alcohol heavily, at least a pint a day if not more. He has not drunk in the last 3 days and he is having lots of vomiting. He said that the vomitus or the emesis was just dark brown, no blood that he saw, although does not know the color of his stools. He has diffuse abdominal pain, worse in the epigastric area. His symptoms have been slowly getting worse; however, he denied any chest pain, shortness of breath. He was extensively investigated in the Emergency Room. He has had mild lactic acidosis and leukocytosis. His chemistry showed he has also slightly elevated creatinine and deranged liver enzyme. His AST and alkaline phosphatase are elevated. The ALT and total bilirubin were normal. His total protein was 9.8, albumin was 4.7. His lipase was 58. Urinalysis was essentially unremarkable and his CT scan of the abdomen and pelvis showed that there are no significant localized inflammatory type changes about the bowel, possible degree of long segment distal small bowel wall thickening and also the ascending colon as could be seen with enterocolitis in the appropriate clinical setting. There is no CT scan evidence of acute appendicitis, diffuse prominent hepatic steatosis. There is appearance of the degree of distal esophageal wall thickening, which could be seen ____ in the appropriate clinical setting. There is spondylosis in the left at what is considered S1 transitional anatomy of the lumbar spine and basically was admitted with diagnosis of alcohol withdrawal together with possible alcoholic ketoacidosis, probably esophagitis. His anion gap was 37, was started on alcohol withdrawal protocol, has received about 2 liters of fluid and he is now getting a banana bag and he is on alcohol withdrawal protocol. PAST MEDICAL HISTORY: Unremarkable except for alcohol abuse and marijuana abuse. PAST SURGICAL HISTORY: Significant for apparently surgery during the childhood on his heart probably congenital heart disease. ALLERGIES: He has no known drug allergies. MEDICATIONS: He is currently on no medication. FAMILY HISTORY: Noncontributory. SOCIAL HISTORY: He is [id number] dad, has 4 children. He continues to smoke cigarettes as well as marijuana. He abuse also cocaine and opiates. He drinks more than a pint of alcohol. REVIEW OF SYSTEMS: As per history of present illness. PHYSICAL EXAMINATION GENERAL: When I saw him, he was clearly very tremulous, but there is no pallor or jaundice. He was not cyanosed. No lymphadenopathy, no thyromegaly. No jugular venous distention. No limb edema. VITAL SIGNS: His heart rate was 116, blood pressure was 132/73, temperature was 98.6, respiratory rate 20, and oxygen saturation was 97%. HEAD, EYES, EARS, NOSE AND THROAT: Showed normocephalic and atraumatic. NECK: Supple. HEART: Showed normal first and second heart sounds. No gallop or murmur. CHEST: Clear to auscultation. No crepitation or rhonchi. ABDOMEN: Slightly distended, soft with tenderness mostly in the epigastric area. There is no guarding or rigidity. No organomegaly. All hernial orifice intact. Bowel sounds normal. NEUROLOGIC: He is awake, alert, but clearly very tremulous. All his cranial nerves are intact. EXTREMITIES: He moves extremities without difficulty. LABORATORY DATA: His lab work on arrival showed a serum sodium 141, potassium 3.8, chloride 91, bicarbonate 13, anion gap of 37, BUN 15, creatinine 1.6. His estimated GFR was 51 mL per minute, his glucose was 102, calcium was 10.1. Lactic acid was 2.5, magnesium was 1.7. Total bilirubin was 1. AST, ALT, alkaline phosphatase were elevated. His total protein was 9.8, albumin was 4.7 and lipase was 58. His urinalysis was unremarkable and toxic screen was negative. ASSESSMENT AND PLAN: In summary, this is a 29-year-old male patient who was admitted with alcohol withdrawal and also alcoholic ketoacidosis. He does have slightly impaired kidney function with a creatinine of 1.6, also impaired liver enzymes. We will plan to repeat his lab work this evening and again tomorrow morning and continue with alcohol withdrawal protocol as well as banana bag. ESTELLA JARQUIN MD DR: NACHO/kavitha JOB#: [id number] / [id number]
[2019-10-01 18:51] VITALS: BP 120/77
[2019-10-01] MEDS: NICOTINE 7MG PATCH. TD SCH (20:11)
[2019-10-01 22:09] LABS: CALCIUM 8.1 mg/dL (8.5-10.1); CREATININE 1.1 mg/dL (0.7-1.3); GFR 78.6; MAGNESIUM 2.1 mg/dL (1.8-2.4); POTASSIUM 3.8 mmol/L (3.5-5.1)
[2019-10-01 22:53] VITALS: BP 129/84
[2019-10-01] MEDS ORDERED: ACETAMINOPHEN 325 MG TABLET PO PRN (23:15)
[2019-10-02 05:46] VITALS: BP 121/81
[2019-10-02 06:33] LABS: HEMATOCRIT 36.9 % (39.0-53.0); HEMOGLOBIN 12.8 g/dL (13.0-17.5); RED BLOOD COUNT 3.33 x10^6/uL (4.30-5.70); RED CELL DISTRIBUTION WIDTH 17.1 % (11.5-14.5); WHITE BLOOD COUNT 8.4 x10^3/uL (4.0-11.0)
[2019-10-02 06:41] LABS: ALBUMIN/GLOBULIN RATIO 0.8 (1.0-1.7); CALCIUM 8.1 mg/dL (8.5-10.1); CREATININE 0.8 mg/dL (0.7-1.3); GFR 113.5; POTASSIUM 3.5 mmol/L (3.5-5.1); TOTAL BILIRUBIN 0.7 mg/dL (0.2-1.0); TOTAL PROTEIN 6.7 g/dL (6.4-8.2)
[2019-10-02] MEDS ORDERED: MAGNESIUM OXIDE 400 MG TABLET PO ONE (08:45)
[2019-10-02] MEDS ORDERED: THIAMINE 100 MG TABLET. PO ONE (08:45)
[2019-10-02] MEDS ORDERED: MULTIVITAMIN with MINERAL TABLET. PO ONE (08:45)
[2019-10-02] MEDS: NICOTINE 7MG PATCH. TD SCH (09:00)
== END 2019-10-02 10:00 | disposition home or self-care (01) | DRG 641 ==
LOC: ER 08:31 → 1 SOUTH 11:18
PROVIDERS: ADMIT Internal Medicine; ATTEND Internal Medicine
DX: E87.2 Acidosis (principal); Y90.0 Blood alcohol level of less than 20 mg/100 ml; F17.210 Nicotine dependence, cigarettes, uncomplicated; K22.9 Disease of esophagus, unspecified; K76.0 Fatty (change of) liver, not elsewhere classified; N28.9 Disorder of kidney and ureter, unspecified; D72.829 Elevated white blood cell count, unspecified; F10.10 Alcohol abuse, uncomplicated; Z20.828 Contact with and (suspected) exposure to other viral communicable diseases
CPT/HCPCS: 36415; 74177; 80048; 80053; 80076; 80307; 80329; 81001; 83605; 83690; 83735; 84436; 85007; 85025; 85027; 87040; 93005; 96361; 96365; 96367; 96375; 96376; 99285; 99406; C9113; G0480; J0696; J2060; J2405; J3475; Q9967; J7030; U0003-CS

== ENCOUNTER 2020-02-17 03:40 | Emergency (ER) | payer SELFPAY ==
[~2020-02-17] VITALS: Ht 152.4 cm; Wt 59.0 kg
--- NOTE | 2020-02-17 03:45 | PHYS DOC ---
Past History Past Medical History: Alcoholism, Seizure, Other Additional Past Medical Histor: alcohol abuse (BRITTNEY GOMEZ MD) Past Surgical History: No Surgical History Past Surgical History Heart surgery as a child (BRITTNEY GOMEZ MD) Smoking: Cigarettes Alcohol Use: Heavy Drug Use: Cocaine, Marijuana, Opiates (BRITTNEY GOMEZ MD) General Adult HPI: HPI: ".. I was off the alcohol for about 6 months... Then I started drinking again''.. And I started to quit again.. I have not drank anything for the last 2 days.. I am probably going into alcohol withdrawal... I been puking my guts out.. Last 2 days..." Patient is a 29 year old male who presents with above hx and complaints shortness of breath, tachycardia, nausea, vomiting, diarrhea, abdomen pain, tremors, malaise after no alcohol intake for 2 days. Patient has had previous episodes of severe alcohol withdrawal and alcoholic ketoacidosis. Patient does continue to smoke tobacco and marijuana. Has a past history of cocaine and opiate abuse. Patient drinks approximately 1 to 2 pints of alcohol a day. Has had history of renal impairment due to episodes of ketoacidosis. There is nicolas te history of congenital heart disease which required surgery or procedure as a child. Patient does not know the specifics of the congenital heart problem. Patient currently not following with a primary care. Patient denies any intake of bad food. No recent travel. No specific ill contacts. No history of trauma. Patient denies any history of immunosuppression. (BRITTNEY GOMEZ MD) Review of Systems: Review of Systems: Constitutional: Denies fever or chills Eyes: Denies change in visual acuity HENT: Denies nasal congestion or sore throat Respiratory: Complains of shortness of breath Cardiovascular: Complaints of tachycardia GI: Complains of abdominal pain, nausea, vomiting, and diarrhea : Denies dysuria Musculoskeletal: Denies back pain or joint pain Integument: Denies rash Neurologic: Denies headache, focal weakness or sensory changes . Complaints of tremor Endocrine: Denies polyuria or polydipsia Lymphatic: Denies swollen glands Psychiatric: Denies depression or anxiety (BRITTNEY GOMEZ MD) Family History: Family History: Noncontributory to presentation (BRITTNEY GOMEZ MD) Current Medications: Current Meds: See nursing for home meds (BRITTNEY GOMEZ MD) Allergies: Allergies: Allergies Coded Allergies Type Severity Reaction Last Updated Verified No Known Drug Allergies 10/01/19 No (BRITTNEY GOMEZ MD) Physical Exam: PE: Constitutional: Moderate acute distress, non-toxic appearance. [] HENT: Normocephalic, atraumatic, bilateral external ears normal, oropharynx dry, no oral exudates, nose normal. [] Eyes: PERRLA, EOMI, conjunctiva mild conjunctiva injection, no discharge. [] Neck: Normal range of motion, no tenderness, supple, no stridor. [] Cardiovascular: Tachycardia heart rate regular rhythm, no murmur [] Lungs & Thorax: Bilateral breath sounds equal apex with few scattered wheezes on auscultation [] Abdomen: Bowel sounds hyperactive, , some generalized tenderness, no masses, no pulsatile masses. No focal areas of rebound Skin: Warm, dry, no erythema, no rash. Poor turgor Back: No tenderness, no CVA tenderness. [] Extremities: No tenderness, no cyanosis, no clubbing, ROM intact, no edema. No psoas sign Neurologic: Alert and oriented X 3, moves all extremities on request, has distal sensory,, no focal deficits noted. Does have a resting tremor. Psychologic: Affect anxious, judgement normal, mood normal. [] (BRITTNEY GOMEZ MD) EKG: EKG: My interpretation EKG shows a sinus rhythm at 90 bpm. No findings acute STEMI of contralateral changes [] (BRITTNEY GOMEZ MD) Radiology/Procedures: Radiology/Procedures: [][address] [place] [id number] IMAGING REPORT Signed PATIENT: JACKIE BURDEN ACCOUNT: [id number] : 1990 LOCATION: ER AGE: 29 SEX: M EXAM STATUS: REG ER ORD. PHYSICIAN: BRITTNEY GOMEZ MD REASON: n/v/ abd. pain PROCEDURE: ACUTE ABDOMEN SERIES ACUTE ABDOMEN SERIES INDICATION: Reason: n/v/ abd. pain / Spl. Instructions: / History: . COMPARISON STUDY: None. FINDINGS: Lungs: Normal lung volume. No pulmonary mass or consolidation. The tracheobronchial tree and hilar structures are normal. Pleura: No pleural effusion or pneumothorax. Heart and Mediastinum: The cardiomediastinal silhouette is normal. The great vessels of the thorax are normal. Abdomen: Nonobstructive bowel gas pattern. No free air. IMPRESSION: Nonobstructive bowel gas pattern. No consolidation. Electronically signed by: Roby Villasenor MD (02/17/2020 4:43 AM) [facility] DICTATED AND SIGNED BY: ROBY VILLASENOR MD DATE: 02/17/20 0443 CC: BRITTNEY GOMEZ MD; PCP,NO ~MTH0 0 (BRITTNEY GOMEZ MD) Heart Score: HEART Score for Chest Pain: HEART Score for Chest Pain Response (Comments) Value History Slighlty/Non-Suspicious 0 ECG Normal 0 Age >45 - < 65 1 Risk Factors 1 or 2 Risk Factors 1 Troponin < Normal Limit 0 Total 2 Risk Factors: Risk Factors: DM, Current or recent (<one month) smoker, HTN, HLP, family history of CAD, obesity. Risk Scores: Score 0 - 3: 2.5% MACE over next 6 weeks - Discharge Home Score 4 - 6: 20.3% MACE over next 6 weeks - Admit for Clinical Observation Score 7 - 10: 72.7% MACE over next 6 weeks - Early Invasive Strategies (BRITTNEY GOMEZ MD) Course & Med Decision Making: Course & Med Decision Making Pertinent Labs and Imaging studies reviewed. (See chart for details) Patient checked out to Dr. Mclean at shift change she will make disposition on patient. Impression: 1. Nausea, Vomiting, Diarrhea 2. Alcohol withdrawal- (Drug screen - for ETOH <10) 3. Dehydration 4. Leukocytosis 15.5 5. Thrombocytopenia 102 6. Hyperchromic and Macrocytic Indices 39/115 7. Hypomagnesium 1.5 8. Elevated LFT's- Alk .P145, [id number], 9. Elevated CK - 334 10.Elevated D-dier 1.51 11. Tobacco and Marijuana Use [] (BRITTNEY GOMEZ MD) Course & Med Decision Making Assumed care of patient at checkout. At checkout work-up was pending. Patient is feeling significantly better after treatment. Because he is stable at this time for discharge. We have discussed that if he develops shortness of breath, seizures, hallucinations he was should return to the emergency room. Patient's test results and vitals while in the ED were fully reviewed and discussed with the patient. Patient is stable and at this time does not need admission to the hospital. We have discussed strict return precautions and the importance of following up with their Primary Care Physician. Patient stated understanding and was given an opportunity to ask any questions. Patient is in agreement with plan. (QUAN MCLEAN MD) Dragon Disclaimer: Dragon Disclaimer: This electronic medical record was generated, in whole or in part, using a voice recognition dictation system. (BRITTNEY GOMEZ MD) Departure Departure: Impression: Primary Impression: Alcohol withdrawal Disposition: 01 DC HOME SELF CARE/HOMELESS Condition: STABLE Referrals: PCP,NO (PCP) Patient Instructions: Alcohol Withdrawal Scripts No Active Prescriptions or Reported Meds Dragon Disclaimer This chart was dictated in whole or in part using Voice Recognition software in a busy, high-work load, and often noisy Emergency Department environment. It may contain unintended and wholly unrecognized errors or omissions. (BRITTNEY GOMEZ MD) Dragon Disclaimer This chart was dictated in whole or in part using Voice Recognition software in a busy, high-work load, and often noisy Emergency Department environment. It may contain unintended and wholly unrecognized errors or omissions. (BRITTNEY GOMEZ MD) BRITTNEY GOMEZ MD Feb 17, 2020 03:45 QUAN MCLEAN MD Feb 17, 2020 07:54
[2020-02-17] MEDS ORDERED: ONDANSETRON PF 4 MG/2 ML VIAL. IVP ONE (04:00)
[2020-02-17] MEDS ORDERED: MVI, ADULT NO.4 WITH VIT K 10 ML, THIAMINE INJ 100 MG in IV RINGERS SOLUTION,LACTATED 1... IV ONE (04:30)
[2020-02-17] MEDS ORDERED: FOLIC ACID 1 MG TABLET PO ONE (04:30)
[2020-02-17] MEDS ORDERED: IV RINGERS SOLUTION,LACTATED 1,000 ML IV SCH (04:30)
--- NOTE | 2020-02-17 04:46 | RAD ---
ACUTE ABDOMEN SERIES INDICATION: Reason: n/v/ abd. pain / Spl. Instructions: / History: . COMPARISON STUDY: None. FINDINGS: Lungs: Normal lung volume. No pulmonary mass or consolidation. The tracheobronchial tree and hilar structures are normal. Pleura: No pleural effusion or pneumothorax. Heart and Mediastinum: The cardiomediastinal silhouette is normal. The great vessels of the thorax are normal. Abdomen: Nonobstructive bowel gas pattern. No free air. IMPRESSION: Nonobstructive bowel gas pattern. No consolidation. Electronically signed by: Shayne Flores MD (02/17/2020 4:43 AM) [facility]
[2020-02-17] MEDS ORDERED: THIAMINE 200 MG/2 ML VIAL. IV ONE (04:53)
[2020-02-17] MEDS ORDERED: MVI, ADULT NO.4 WITH VIT K 10 ML VIAL IV ONE (04:54)
[2020-02-17] MEDS ORDERED: FOLIC ACID 1 MG TABLET ONE (04:54)
[2020-02-17 05:33] LABS: BASO # 0.1 x10^3/uL (0.0-0.2); BASO % 0 % (0-3); EOS % 0 % (0-3); HEMATOCRIT 51.1 % (39.0-53.0); HEMOGLOBIN 17.3 g/dL (13.0-17.5); LYMPH # 0.5 x10^3/uL (1.0-4.8); LYMPH % 3 % (24-48); MEAN CORPUSCULAR HEMOGLOBIN 39 pg (25-35); MEAN CORPUSCULAR HGB CONC 34 g/dL (31-37); MEAN CORPUSCULAR VOLUME 115 fL (79-100); MONO # 1.4 x10^3/uL (0.0-1.1); MONO % 9 % (0-9); NEUT # 13.6 x10^3uL (1.8-7.7); NEUT % 88 % (31-73); PLATELET COUNT 102 x10^3/uL (140-400); RED BLOOD COUNT 4.47 x10^6/uL (4.30-5.70); WHITE BLOOD COUNT 15.5 x10^3/uL (4.0-11.0)
[2020-02-17 05:40] LABS: BILIRUBIN,URINE NEG (NEG); CLARITY,URINE CLEAR; COLOR,URINE YELLOW; GLUCOSE,URINE NEG (NEG)
[2020-02-17 05:41] LABS: BACTERIA,URINE FEW /HPF (0-FEW); NITRITE,URINE NEG (NEG); SQUAMOUS EPITHELIAL CELL,UR OCC /LPF; UROBILINOGEN,URINE 0.2 mg/dL (0.2 mg/dL); WBC,URINE OCC /HPF (0-4)
[2020-02-17 05:42] LABS: HYALINE CASTS, URINE FEW /HPF
[2020-02-17 05:43] LABS: CALCIUM 9.8 mg/dL (8.5-10.1); CREATININE 1.5 mg/dL (0.7-1.3)
[2020-02-17 05:44] LABS: BARBITURATES NEG (NEG); BENZODIAZEPINES NEG (NEG); CANNABINOIDS POS (NEG); COCAINE NEG (NEG); METHADONE NEG (NEG); OPIATES NEG (NEG); PHENCYCLIDINE NEG (NEG)
[2020-02-17 05:45] LABS: AMPHETAMINE/METHAMPHETAMINE NEG (NEG)
[2020-02-17 05:49] LABS: % BANDS 6 % (0-9); % LYMPHS 3 % (24-48); % MONOS 5 % (0-10); % SEGS 86 % (35-66)
[2020-02-17 05:50] LABS: PLT ESTIMATE DECREASED (ADEQUATE)
[2020-02-17 05:55] LABS: ALBUMIN 4.4 g/dL (3.4-5.0); DIRECT BILIRUBIN 0.4 mg/dL (0.0-0.2); MAGNESIUM 1.5 mg/dL (1.8-2.4); TOTAL BILIRUBIN 1.1 mg/dL (0.2-1.0)
--- NOTE | 2020-02-17 06:44 | EKG ---
[address] [address] Test Date: 2020-02-17 Test Time: 04:26:46 Pat Name: JACKIE BURDEN Department: Room: Gender: M Weaving Loom Operator: PETER : 1990 Requested By: BRITTNEY GOMEZ Order Number: [id number] Reading MD: Measurements Intervals [place] Rate: 90 P: 58 AR: 98 QRS: 90 QRSD: 76 T: 77 QT: 332 QTc: 410 Interpretive Statements SINUS RHYTHM NORMAL ECG RI6.02 No previous ECG available for comparison
[2020-02-17] MEDS ORDERED: KETOROLAC 15 MG/ML VIAL. IVP ONE (06:45)
[2020-02-17 07:24] VITALS: BP 122/70
== END 2020-02-17 07:50 | disposition home or self-care (01) ==
LOC: ER 03:40
DX: F10.239 Alcohol dependence with withdrawal, unspecified (principal); E86.0 Dehydration; D72.829 Elevated white blood cell count, unspecified; D69.6 Thrombocytopenia, unspecified; E83.42 Hypomagnesemia; R74.8 Abnormal levels of other serum enzymes; R79.1 Abnormal coagulation profile; D53.9 Nutritional anemia, unspecified; R79.89 Other specified abnormal findings of blood chemistry; F17.210 Nicotine dependence, cigarettes, uncomplicated; Y90.0 Blood alcohol level of less than 20 mg/100 ml
CPT/HCPCS: 36415; 74022; 80048; 80076; 80307; 81001; 82150; 82550; 83690; 83735; 83880; 84443; 84484; 85007; 85025; 85379; 85610; 85730; 93005; 96365; 96366; 96375; 99285; G0480; J1885; J2060; J2405; J7120

== ENCOUNTER 2020-03-11 17:34 | Emergency (ER) | payer SELFPAY ==
[~2020-03-11] VITALS: Ht 152.4 cm; Wt 59.0 kg
[2020-03-11] MEDS ORDERED: IV NORMAL SALINE 1,000ML 1,000 ML IV ONE ×2 (18:00→19:30)
[2020-03-11] MEDS ORDERED: FAMOTIDINE 20 MG/2 ML VIAL IVP ONE (18:00)
[2020-03-11] MEDS ORDERED: MORPHINE SULFATE 4 MG/ML DISP.SYRIN. IV ONE ×2 (18:00→20:30)
[2020-03-11] MEDS ORDERED: ONDANSETRON PF 4 MG/2 ML VIAL. IVP ONE ×2 (18:00→18:45)
[2020-03-11 18:14] LABS: BASO # 0.1 x10^3/uL (0.0-0.2); BASO % 1 % (0-3); CALCIUM 9.4 mg/dL (8.5-10.1); EOS % 0 % (0-3); GFR 87.7; HEMATOCRIT 49.3 % (39.0-53.0); HEMOGLOBIN 16.7 g/dL (13.0-17.5); LYMPH # 1.2 x10^3/uL (1.0-4.8); LYMPH % 8 % (24-48); MEAN CORPUSCULAR HEMOGLOBIN 38 pg (25-35); MEAN CORPUSCULAR HGB CONC 34 g/dL (31-37); MEAN CORPUSCULAR VOLUME 113 fL (79-100); MONO % 7 % (0-9); NEUT # 13.3 x10^3uL (1.8-7.7); NEUT % 85 % (31-73); PLATELET COUNT 128 x10^3/uL (140-400); POTASSIUM 3.3 mmol/L (3.5-5.1); RED BLOOD COUNT 4.38 x10^6/uL (4.30-5.70); RED CELL DISTRIBUTION WIDTH 14.4 % (11.5-14.5); WHITE BLOOD COUNT 15.6 x10^3/uL (4.0-11.0)
[2020-03-11 18:20] LABS: ALBUMIN 4.2 g/dL (3.4-5.0); TOTAL BILIRUBIN 0.8 mg/dL (0.2-1.0); TOTAL PROTEIN 8.6 g/dL (6.4-8.2)
--- NOTE | 2020-03-11 18:30 | PHYS DOC ---
Past History Past Medical History: Alcoholism, Seizure, Other Additional Past Medical Histor: alcohol abuse (MEGHANN FERRARO APRN) Past Surgical History: No Surgical History (MEGHANN FERRARO APRN) Smoking: Cigarettes Alcohol Use: Heavy Drug Use: Cocaine, Marijuana, Opiates (MEGHANN FERRARO APRN) General Adult EDM: Chief Complaint: HEMATEMESIS/VOMITING BLOOD HPI: HPI: Patient is a 29-year-old male who presents with hematemesis. "I started vomiting at 9 AM at first it was bright red. The last couple hours it has been black". Patient reports having a syncopal episode at home. Patient reports drinking a pint of whiskey every day. Denies taking any thing at home for nausea or pain.Rating pain 8/10. (MEGHANN FERRARO APRN) Review of Systems: Review of Systems: Constitutional: Denies fever or chills Eyes: Denies change in visual acuity HENT: Denies nasal congestion or sore throat Respiratory: Denies cough or shortness of breath Cardiovascular: Denies chest pain or edema GI: Reports abdominal pain, nausea and hematemesis : Denies dysuria Musculoskeletal: Denies back pain or joint pain Integument: Denies rash Neurologic: Denies headache, focal weakness or sensory changes Endocrine: Denies polyuria or polydipsia Lymphatic: Denies swollen glands Psychiatric: Denies depression or anxiety (MEGHANN FERRARO APRN) Current Medications: Current Meds: Current Medications Medications (Trade) Dose Ordered Sig/Maria E Start Time Stop Time Status Last Admin Dose Admin Famotidine (Pepcid Vial) 20 mg 1X ONCE 03/11/20 18:00 03/11/20 18:01 DC 03/11/20 18:08 20 MG Morphine Sulfate (Morphine 4mg Syringe) 4 mg 1X ONCE 03/11/20 18:00 03/11/20 18:01 DC 03/11/20 18:09 4 MG Ondansetron HCl (Zofran) 4 mg 1X ONCE 03/11/20 18:00 03/11/20 18:01 DC 03/11/20 18:09 4 MG Sodium Chloride 1,000 ml @ 1,000 mls/hr 1X ONCE 03/11/20 18:00 03/11/20 18:59 03/11/20 18:00 1,000 MLS/HR (FERRARO,MEGHANN QUALITY CONTROL INSPECTOR HEADING) Allergies: Allergies: Allergies Coded Allergies Type Severity Reaction Last Updated Verified No Known Drug Allergies 10/01/19 No (MEGHANN FERRARO APRN) Physical Exam: PE: Constitutional: Well developed, well nourished, no acute distress, non-toxic appearance. [] HENT: Normocephalic, atraumatic, bilateral external ears normal, oropharynx moist, no oral exudates, nose normal. [] Eyes: PERRLA, EOMI, conjunctiva normal, no discharge. [] Neck: Normal range of motion, no tenderness, supple, no stridor. [] Cardiovascular: Sinus tach Lungs & Thorax: Bilateral breath sounds clear to auscultation [] Abdomen: Bowel sounds normal, soft, no masses, no pulsatile masses. Guarding with palpation of abdomen. Skin: Warm, dry, no erythema, no rash. [] Back: No tenderness, no CVA tenderness. [] Extremities: No tenderness, no cyanosis, no clubbing, ROM intact, no edema. [] Neurologic: Alert and oriented X 3, normal motor function, normal sensory function, no focal deficits noted. [] Psychologic: Affect normal, judgement normal, mood normal. [] (MEGHANN FERRARO QUALITY CONTROL INSPECTOR HEADING) Current Patient Data: Labs: Laboratory Tests Test 03/11/20 17:40 White Blood Count 15.6 x10^3/uL (4.0-11.0) H Red Blood Count 4.38 x10^6/uL (4.30-5.70) Hemoglobin 16.7 g/dL (13.0-17.5) Hematocrit 49.3 % (39.0-53.0) Mean Corpuscular Volume 113 fL (79-100) H Mean Corpuscular Hemoglobin 38 pg (25-35) H Mean Corpuscular Hemoglobin Concent 34 g/dL (31-37) Red Cell Distribution Width 14.4 % (11.5-14.5) Platelet Count 128 x10^3/uL (140-400) L Neutrophils (%) (Auto) 85 % (31-73) H Lymphocytes (%) (Auto) 8 % (24-48) L Monocytes (%) (Auto) 7 % (0-9) Eosinophils (%) (Auto) 0 % (0-3) Basophils (%) (Auto) 1 % (0-3) Neutrophils # (Auto) 13.3 x10^3uL (1.8-7.7) H Lymphocytes # (Auto) 1.2 x10^3/uL (1.0-4.8) Monocytes # (Auto) 1.0 x10^3/uL (0.0-1.1) Eosinophils # (Auto) 0.0 x10^3/uL (0.0-0.7) Basophils # (Auto) 0.1 x10^3/uL (0.0-0.2) Platelet Estimate Pending Vital Signs: Vital Signs Date Time Temp Pulse Resp B/P (MAP) Pulse Ox O2 Delivery O2 Flow Rate FiO2 03/11/20 18:09 16 100 03/11/20 17:47 96.9 120 130/79 (96) Room Air (MEGHANN FERRARO QUALITY CONTROL INSPECTOR HEADING) EKG: EKG: Read at [address] Treviño. HR 79 BPM[] (MEGHANN FERRARO QUALITY CONTROL INSPECTOR HEADING) Radiology/Procedures: Radiology/Procedures: []Supine and upright abdomen. HISTORY: Hematemesis Supine and upright views were taken of the abdomen. Lung bases are clear. There is no free air on the upright view. There are no abnormal air-fluid levels. Bowel pattern is normal. There are no abnormal calcifications. IMPRESSION: 1. No bowel obstruction or acute finding in the abdomen. Portable AP chest. HISTORY: Hematemesis AP view was taken of the chest. Lungs are free of infiltrates. Heart is normal in size. There is no pleural effusion. IMPRESSION: 1. No acute infiltrates. Electronically signed by: Raymundo Berg MD (03/11/2020 6:29 PM) [facility] Study: CT abdomen/pelvis with intravenous contrast Indication: Abdominal pain. Comparison: 10/01/2019 Technique: Helical CT imaging performed of the abdomen and pelvis after the intravenous administration of 75 cc Omnipaque 300 contrast. Sagittal and coronal reformats were obtained. One or more of the following individualized dose reduction techniques were utilized for this examination: 1. Automated exposure control 2. Adjustment of the mA and/or kV according to patient size 3. Use of iterative reconstruction technique. Findings: Limited assessment of the visualized lungs due to motion. Redemonstration of circumferential thickening of the lower esophagus. Greater degree of mucosal enhancement at the gastroesophageal junction from the prior which could either be from a small hiatal hernia or mucosal inflammation. Diffuse hepatic steatosis. Within normal limits gallbladder, pancreas, spleen and adrenal glands. Solitary punctate nonobstructing intrarenal stone on both the right and left. No collecting system dilatation. Unremarkable/unchanged urinary bladder. No interval change in size of the prostate. The bowel is not fully evaluated without oral contrast. The colonic wall is mildly thickened from the transverse segment through the rectum but component of this wall thickening could be from underdistention. No colonic obstruction, pneumatosis or perforation. Within normal limits appendix. Nonobstructed small bowel. Unremarkable major vasculature. No lymphadenopathy by size criteria. No free fluid or pneumoperitoneum. Unchanged body wall soft tissues. Redemonstration of transitional lumbosacral anatomy with a unilateral pars defect on the left at S1. Impression: 1. Mild colonic wall thickening from the transverse segment through the rectum which could be in part physiologic from underdistention though a mild colitis is possible. No bowel obstruction or perforation. 2. Note is again made of circumferential wall thickening of the distal esophagus. There is now a greater degree of mucosal enhancement of the gastroesophageal junction which could either be from a hiatal hernia or potentially the sequela of active esophagitis. Correlate with patient symptomatology. 3. Diffuse hepatic steatosis. 4. Punctate intrarenal stone on the right and left without collecting system obstruction. (MEGHANN FERRARO QUALITY CONTROL INSPECTOR HEADING) Heart Score: Risk Factors: Risk Factors: DM, Current or recent (<one month) smoker, HTN, HLP, family history of CAD, obesity. Risk Scores: Score 0 - 3: 2.5% MACE over next 6 weeks - Discharge Home Score 4 - 6: 20.3% MACE over next 6 weeks - Admit for Clinical Observation Score 7 - 10: 72.7% MACE over next 6 weeks - Early Invasive Strategies (MEGHANN FERRARO APRN) Course & Med Decision Making: Course & Med Decision Making Pertinent Labs and Imaging studies reviewed. (See chart for details) [] 29-year-old male presents with hemoptysis and abdominal pain. Patient states he has been vomiting since 9 AM and had one syncopal episode at home. Patient reports drinking a pint of whiskey every day. Patient smokes cigarettes, and smokes marijuana. We will order acute abdomen to rule out esophageal tear. CT ABD ordered to R/O pancreatitis. CT ABD shows esopogitis. Patient reporting nausea has improved and vomiting has stopped. Will DC to home. Patient to f/u with GI. Will prescribe Protonix and Zofran for home. (MEGHANN FERRARO QUALITY CONTROL INSPECTOR HEADING) Dragon Disclaimer: Dragon Disclaimer: This electronic medical record was generated, in whole or in part, using a voice recognition dictation system. (MEGHANN FERRARO QUALITY CONTROL INSPECTOR HEADING) Departure Departure: Impression: Primary Impression: Esophagitis Disposition: 01 DC HOME SELF CARE/HOMELESS Condition: GOOD Referrals: PCP,YULY (PCP) ZOHREH CHRISTINA MD Patient Instructions: Esophagitis Additional Instructions: EMERGENCY DEPARTMENT GENERAL DISCHARGE INSTRUCTIONS Thank you for coming to [facility] (ED) today and trusting us with you care. We trust that you had a positivie experience in our Emergency Department. If you wish to speak to the department management, you may call the director at [phone]. YOUR FOLLOW UP INSTRUCTIONS ARE FOLLOWS: 1. Do you have a private Doctor? If you do not have a private doctor, please ask for a resource list of physicians or clinics that may be able to assist you with follow up care. 2. The Emergency Physician has interpreted your x-rays. The X-Ray specialist will also review them. If there is a change in the findings, you will be notified in 48 hours when at all possible. 3. A lab test or culture has been done, your results will be reviewed and you will be notified if you need a change in treatment. ADDITIONAL INSTRUCTIONS AND INFORMATION: 1. Your care today has been supervised by a physician who is specially trained in emergency care. Many problems require more than one evaluation for a complete diagnosis and treatment. We recommend that you schedule your follow up appointment as recommended to ensure complete treatment of you illness or injury. If you are unable to obtain follow up care and continue to have a problem, or if your condition worsens, we recommend that you return to the ED. 2. We are not able to safely determine your condition over the phone nor are we able to give sound medical advice over the phone. For these safety reasons, if you call for medical advice we will ask you to come to the ED for further evaluation. 3. If you have any questions regarding these discharge instructions please call the ED at [phone]. SAFETY INFORMATION: In the interest of safety, wellness, and injury prevention; we encourage you to wear your sealbelt, if you smoke; quite smoking, and we encourage family to use a protective helmet for bicycling and other sporting events that present an increased risk for head injury. IF YOUR SYMPTOMS WORSEN OR NEW SYMPTOMS DEVELOP, OR YOU HAVE CONCERNS ABOUT YOUR CONDITION; OR IF YOUR CONDITION WORSENS WHILE YOU ARE WAITING FOR YOUR FOLLOW UP APPOINTMENT; EITHER CONTACT YOUR PRIMARY CARE DOCTOR, THE PHYSICIAN WHOSE NAME AND NUMBER YOU WERE GIVEN, OR RETURN TO THE ED IMMEDIATELY. Scripts Ondansetron Hcl (ZOFRAN) 4 Mg Tablet 4 MG PO TID PRN PRN for NAUSEA, #21 TAB Prov: MEGHANN FERRARO APRN 03/11/20 Pantoprazole Sodium (PANTOPRAZOLE SODIUM) 40 Mg Tablet. 40 MG PO DAILY for esophagitis for 30 Days, #30 TAB Prov: RONANMEGHANN GRANT 03/11/20 Pete Disclaimer This chart was dictated in whole or in part using Voice Recognition software in a busy, high-work load, and often noisy Emergency Department environment. It may contain unintended and wholly unrecognized errors or omissions. (BRITTNEY TREVIÑO MD) Attending Co-Sign Attending Co-Sign The patient was seen and interviewed as well as examined at the bedside. The chart was reviewed. The case was discussed. Agree with the plan of care. (BRITTNEY TREVIÑO MD) MEGHANN FERRARO APRN Mar 11, 2020 18:30 BRITTNEY TREVIÑO MD Mar 12, 2020 18:11
--- NOTE | 2020-03-11 18:31 | RAD ---
Portable AP chest. HISTORY: Hematemesis AP view was taken of the chest. Lungs are free of infiltrates. Heart is normal in size. There is no p leural effusion. IMPRESSION: 1. No acute infiltrates. Electronically signed by: Raymundo Berg MD (03/11/2020 6:29 PM) [facility]
[2020-03-11] MEDS ORDERED: POTASSIUM CHLORIDE 20 MEQ TABLET.ER. PO ONE (19:00)
--- NOTE | 2020-03-11 20:05 | RAD ---
Supine and upright abdomen. HISTORY: Hematemesis Supine and upright views were taken of the abdomen. Lung bases are clear. There is no free air on the upright view. There are no abnormal air-fluid levels. Bowel pattern is normal. There are no abnormal calcifications. IMPRESSION: 1. No bowel obstruction or acute finding in the abdomen. Electronically signed by: Raymundo Berg MD (03/11/2020 8:02 PM) [facility]
[2020-03-11] MEDS ORDERED: IOHEXOL 300 MG/ML 75 ML VIAL. IV ONE (20:30)
[2020-03-11] MEDS ORDERED: PROCHLORPERAZINE 10 MG/2 ML VIAL. IV ONE (20:30)
[2020-03-11] MEDS ORDERED: CONTRAST GIVEN. MC PRN (20:45)
--- NOTE | 2020-03-11 21:08 | RAD ---
Study: CT abdomen/pelvis with intravenous contrast Indication: Abdominal pain. Comparison: 10/01/2019 Technique: Helical CT imaging performed of the abdomen and pelvis after the intravenous administratio n of 75 cc Omnipaque 300 contrast. Sagittal and coronal reformats were obtained. One or more of the following individualized dose reduction techniques were utilized for this examinat ion: 1. Automated exposure control 2. Adjustment of the mA and/or kV according to patient size 3. Use of iterative reconstruction technique. Findings: Limited assessment of the visualized lungs due to motion. Redemonstration of circumferential thickeni ng of the lower esophagus. Greater degree of mucosal enhancement at the gastroesophageal junction fro m the prior which could either be from a small hiatal hernia or mucosal inflammation. Diffuse hepatic steatosis. Within normal limits gallbladder, pancreas, spleen and adrenal glands. Christine itary punctate nonobstructing intrarenal stone on both the right and left. No collecting system dilat ation. Unremarkable/unchanged urinary bladder. No interval change in size of the prostate. The bowel is not fully evaluated without oral contrast. The colonic wall is mildly thickened from the transverse segment through the rectum but component of this wall thickening could be from underdiste ntion. No colonic obstruction, pneumatosis or perforation. Within normal limits appendix. Nonobstruct ed small bowel. Unremarkable major vasculature. No lymphadenopathy by size criteria. No free fluid or pneumoperitoneu m. Unchanged body wall soft tissues. Redemonstration of transitional lumbosacral anatomy with a unila teral pars defect on the left at S1. Impression: 1. Mild colonic wall thickening from the transverse segment through the rectum which could be in par t physiologic from underdistention though a mild colitis is possible. No bowel obstruction or perfora tion. 2. Note is again made of circumferential wall thickening of the distal esophagus. There is now a gre ater degree of mucosal enhancement of the gastroesophageal junction which could either be from a hiat al hernia or potentially the sequela of active esophagitis. Correlate with patient symptomatology. 3. Diffuse hepatic steatosis. 4. Punctate intrarenal stone on the right and left without collecting system obstruction. Electronically signed by: GUS CLAY MD (03/11/2020 9:06 PM) [facility]
--- NOTE | 2020-03-11 21:42 | EKG ---
[address] [address] Test Date: 2020-03-11 Test Time: 17:55:32 Pat Name: JACKIE BURDEN Department: Room: Gender: M System Safety Engineer: BROWN : 1990 Requested By: GERARDO LYNCH Order Number: [id number] Reading MD: Measurements Intervals [place] Rate: 79 P: MA: QRS: 83 QRSD: 82 T: 67 QT: 378 QTc: 434 Interpretive Statements IRREGULAR RHYTHM, NO P-WAVE FOUND OTHERWISE NORMAL ECG RI6.02 No previous ECG available for comparison
[2020-03-11] MEDS ORDERED: ONDA4TAB7 PO (21:46)
[2020-03-11] MEDS ORDERED: PANT40TA6 PO (21:46)
[2020-03-11 22:05] LABS: % LYMPHS 6 % (24-48); % MONOS 6 % (0-10); % SEGS 88 % (35-66); PLT ESTIMATE DECREASED (ADEQUATE)
[2020-03-11 22:11] VITALS: BP 148/103
== END 2020-03-11 22:11 | disposition home or self-care (01) ==
LOC: ER 17:34
DX: K20.90 Esophagitis, unspecified without bleeding (principal); F17.210 Nicotine dependence, cigarettes, uncomplicated; F12.10 Cannabis abuse, uncomplicated; F11.10 Opioid abuse, uncomplicated
CPT/HCPCS: 36415; 71045; 74019; 74177; 80053; 83690; 85007; 85025; 85610; 85730; 86850; 86900; 86901; 93005; 96361; 96374; 96375; 96376; 99285; G0480; J0780; J2270; J2405; J3010; J3490; J7030; Q9967

== ENCOUNTER 2020-05-13 08:42 | Inpatient (IN) | payer SELFPAY ==
[~2020-05-13] VITALS: Ht 165.1 cm; Wt 61.4 kg
[~2020-05-13 08:42] MED LIST changes: +PANT40TA6 PO
[2020-05-13] MEDS ORDERED: FOLIC ACID 1 MG TABLET PO ONE (09:00)
[2020-05-13] MEDS ORDERED: FAMOTIDINE 20 MG/2 ML VIAL IVP ONE (09:00)
[2020-05-13] MEDS ORDERED: IV RINGERS SOLUTION,LACTATED 1,000 ML IV ONE (09:00)
[2020-05-13] MEDS ORDERED: METOCLOPRAMIDE HCL 10 MG/2 ML VIAL. IVP ONE (09:00)
[2020-05-13] MEDS ORDERED: MULTIVITAMIN with MINERAL TABLET. PO ONE (09:00)
[2020-05-13 09:21] LABS: BASO # 0.1 x10^3/uL (0.0-0.2); BASO % 0 % (0-3); EOS % 0 % (0-3); HEMATOCRIT 53.7 % (39.0-53.0); HEMOGLOBIN 18.2 g/dL (13.0-17.5); LYMPH # 1.7 x10^3/uL (1.0-4.8); LYMPH % 10 % (24-48); MEAN CORPUSCULAR HEMOGLOBIN 38 pg (25-35); MEAN CORPUSCULAR HGB CONC 34 g/dL (31-37); MEAN CORPUSCULAR VOLUME 113 fL (79-100); MONO # 1.6 x10^3/uL (0.0-1.1); MONO % 9 % (0-9); NEUT # 13.2 x10^3uL (1.8-7.7); NEUT % 80 % (31-73); PLATELET COUNT 161 x10^3/uL (140-400); RED BLOOD COUNT 4.77 x10^6/uL (4.30-5.70); RED CELL DISTRIBUTION WIDTH 15.3 % (11.5-14.5); WHITE BLOOD COUNT 16.5 x10^3/uL (4.0-11.0)
--- NOTE | 2020-05-13 09:24 | PHYS DOC ---
Past History Past Medical History: Alcoholism, Seizure, Other Additional Past Medical Histor: alcohol abuse Past Surgical History: No Surgical History Smoking: Cigarettes Alcohol Use: Heavy Drug Use: Cocaine, Marijuana, Opiates General Adult EDM: Chief Complaint: WITHDRAWAL HPI: HPI: 30 yo M PMH tobacco use and alcohol dependence presents to the ed with female significant other (assists w/hx) c/o nausea and nonbloody, nonbilious vomiting for the past 3 days, reports he is concerned he is in alcohol withdrawal and has been attempting to drink smaller amounts of alcohol to reduce his shakes. States he has not eaten anything in the past 3 days. Cannot recall when he last voided. Last drink of alcohol was a few hours ago, took 2 shots. Has never been admitted to inpatient rehab facility. Reports history of alcohol withdrawal seizures. Normally drinks 2 pints of alcohol a day, hx etoh abuse > than 7 years. Denies any trauma, falls or head injury. Takes no routine/prescribed medications. Denies any fever, chills, sore throat, cough, hemoptysis, diarrhea, abdominal or back pain. Review of Systems: Review of Systems: Constitutional: Denies fever or chills Eyes: Denies change in visual acuity HENT: Denies nasal congestion or sore throat Respiratory: Denies cough or shortness of breath Cardiovascular: Denies chest pain or edema GI: Denies bloody stools or diarrhea : Denies dysuria Musculoskeletal: Denies back pain or joint pain Integument: Denies rash Neurologic: Denies headache, neck stiffness, focal weakness or sensory changes Endocrine: Denies polyuria or polydipsia Lymphatic: Denies swollen glands Psychiatric: Denies depression or anxiety Current Medications: Current Meds: Current Medications Medications (Trade) Dose Ordered Sig/Maria E Start Time Stop Time Status Last Admin Dose Admin Famotidine (Pepcid Vial) 20 mg 1X ONCE 05/13/20 09:00 05/13/20 09:08 DC Folic Acid (Folic Acid) 1 mg 1X ONCE 05/13/20 09:00 05/13/20 09:08 DC Lactated Ringer's 1,000 ml @ 1,000 mls/hr 1X ONCE 05/13/20 09:00 05/13/20 09:59 Lorazepam (Ativan Inj) 2 mg 1X ONCE 05/13/20 09:00 05/13/20 09:08 DC Metoclopramide HCl (Reglan Vial) 10 mg 1X ONCE 05/13/20 09:00 05/13/20 09:08 DC Multivitamins/ Calcium (Thera-M Plus) 1 tab 1X ONCE 05/13/20 09:00 05/13/20 09:08 DC Thiamine HCl 100 mg/Sodium Chloride 51 ml @ 100 mls/hr 1X ONCE 05/13/20 09:30 05/13/20 10:00 Allergies: Allergies: Allergies Coded Allergies Type Severity Reaction Last Updated Verified No Known Drug Allergies 10/01/19 No Physical Exam: PE: Constitutional: non-toxic appearance. HENT: Normocephalic, atraumatic, moist mucous membranes, tongue fasciculations present Eyes: EOMI, conjunctiva normal, no discharge. Neck: Normal range of motion, supple, Cardiovascular: S1/2 present, tachycardic Lungs & Thorax: Speaking in full sentences, bilateral equal chest rise, no tachypnea or increased work of breathing Abdomen: soft, no tenderness, Skin: Warm, dry, Back: No midline tenderness, no CVA tenderness. [] Extremities: UE tremors no lower extremity edema Neurologic: Alert, GCS 14 (E 4 M 6 V 4) no focal deficits noted. [] Psychologic: Affect normal, mood normal. [] EKG: EKG: Sinus tachycardia 114 bpm, no axis deviation, normal intervals, no T wave inv ersions, no ST elevations or ST depressions Radiology/Procedures: Radiology/Procedures: IMAGING REPORT Signed PATIENT: JACKIE BURDEN ACCOUNT: [id number] : 1990 LOCATION: ER AGE: 30 SEX: M EXAM STATUS: REG ER ORD. PHYSICIAN: NICHOL DECKER DO REASON: n/v PROCEDURE: CHEST AP ONLY INDICATION: Reason: n/v / Spl. Instructions: / History: COMPARISON: February 2020 FINDINGS: Single view of chest obtained. No focal airspace consolidation. Cardiomediastinal contour unremarkable. No acute osseous abnormality. IMPRESSION: * No focal airspace consolidation or edema. Electronically signed by: Felix Dia MD (05/13/2020 1:07 PM) [id number] DICTATED AND SIGNED BY: FELIX DIA MD DATE: 05/13/20 [id number] CC: PCP,NO; NICHOL DECKER DO ~MTH0 0 Heart Score: Risk Factors: Risk Factors: DM, Current or recent (<one month) smoker, HTN, HLP, family history of CAD, obesity. Risk Scores: Score 0 - 3: 2.5% MACE over next 6 weeks - Discharge Home Score 4 - 6: 20.3% MACE over next 6 weeks - Admit for Clinical Observation Score 7 - 10: 72.7% MACE over next 6 weeks - Early Invasive Strategies Course & Med Decision Making: Course & Med Decision Making Pertinent Labs and Imaging studies reviewed. (See chart for details) Concern for alcohol withdrawal and delirium tremens. Suspect low alcohol level f or pt. Will admit to ICU for close monitoring/seizure precautions (delayed ed stay 2/2 large ed volume). Patient stable at time of admission accepted by Dr. Sepulveda. I have spoken with the patient and/or caregivers-. I have explained the patient's condition, diagnosis and treatment plan based on the information available to me at this time. I have answered the patient's and/or caregivers questions and answered any concerns. The patient and/or caregivers have as good an understanding of the patient's diagnosis, condition and treatment plan as can be expected at this point. The patient has been stabilized within the capability of the emergency department. The patient will be transported for further care and management or will be moved to an observation or inpatient service. I have communicated with the staff or medical practitioner taking over this patient's care. Critical Care: Authorized and Performed by: Nichol Decker DO Total critical care time: approximately 30 minutes Due to a high probability of clinically significant, life threatening deterioration, the patient required my highest level of preparedness to intervene emergently and I personally spent this critical care time directly and personally managing the patient. This critical care time included obtaining a history; examining the patient; pulse oximetry; ventilator management if necessary; ordering and review of studies; arranging urgent treatment with development of a management plan; evaluation of patient's response to treatment; frequent reassessment; discussion with patient/family; and, discussions with other providers. This critical care time was performed to assess and manage the high probability of imminent, life-threatening deterioration that could result in multi-organ failure. It was exclusive of separately billable procedures and treating other patients and teaching time. Please see MDM section and the rest of the note for further information on patient assessment and treatment. Dragon Disclaimer: Pete Disclaimer: This electronic medical record was generated, in whole or in part, using a voice recognition dictation system. Departure Departure: Impression: Primary Impression: Alcohol withdrawal Additional Impression: DTs (delirium tremens) Disposition: ADMITTED INPT THIS HOSP Admitting Physician: Bryn Sepulveda Condition: CRITICAL Referrals: PCP,YULY (PCP) NICHOL DECKER DO May 13, 2020 09:24
[2020-05-13] MEDS ORDERED: THIAMINE INJ 100 MG in IV NORMAL SALINE 50ML 50 ML IV ONE (09:30)
[2020-05-13 09:34] LABS: CREATININE 1.2 mg/dL (0.7-1.3); GFR 70.6; POTASSIUM 3.4 mmol/L (3.5-5.1)
[2020-05-13 09:40] LABS: ALBUMIN 4.4 g/dL (3.4-5.0); ALBUMIN/GLOBULIN RATIO 0.9 (1.0-1.7); MAGNESIUM 1.9 mg/dL (1.8-2.4); TOTAL BILIRUBIN 1.2 mg/dL (0.2-1.0); TOTAL PROTEIN 9.4 g/dL (6.4-8.2)
[2020-05-13 10:11] LABS: AMPHETAMINE/METHAMPHETAMINE NEG (NEG); BARBITURATES NEG (NEG); BENZODIAZEPINES NEG (NEG); CANNABINOIDS POS (NEG); COCAINE NEG (NEG); METHADONE NEG (NEG); OPIATES NEG (NEG); PHENCYCLIDINE NEG (NEG)
--- NOTE | 2020-05-13 10:12 | EKG ---
[address] [address] Test Date: 2020-05-13 Test Time: 09:42:15 Pat Name: JACKIE BURDEN Department: Room: Gender: M Online Tutor: : 1990 Requested By: MIKY DECKER Order Number: [id number] Reading MD: Selvin Szymanski MD Measurements Intervals [place] Rate: 114 P: 14 DC: 98 QRS: 86 QRSD: 82 T: 49 QT: 312 QTc: 433 Interpretive Statements SINUS TACHYCARDIA Electronically Signed On 05-13-2020 10:50:57 INSPECTION ENGINEER by Selvin Szymanski MD
[2020-05-13 11:58] LABS: % BASOS 1 % (0-3); % LYMPHS 8 % (24-48); % MONOS 8 % (0-10); % SEGS 83 % (35-66)
[2020-05-13 11:59] LABS: PLT ESTIMATE ADEQUATE (ADEQUATE)
--- NOTE | 2020-05-13 13:09 | RAD ---
INDICATION: Reason: n/v / Spl. Instructions: / History: COMPARISON: February 2020 FINDINGS: Single view of chest obtained. No focal airspace consolidation. Cardiomediastinal contour unremarkable. No acute osseous abnormality. IMPRESSION: * No focal airspace consolidation or edema. Electronically signed by: Franc Dobbins MD (05/13/2020 1:07 PM) [id number]
[2020-05-13] MEDS ORDERED: ONDANSETRON PF 4 MG/2 ML VIAL. IVP PRN (15:15)
[2020-05-13] MEDS ORDERED: ACETAMINOPHEN 325 MG TABLET PO PRN (15:15)
[2020-05-13] MEDS: IV NORMAL SALINE 1,000ML 1,000 ML IV SCH (15:18)
[2020-05-13] MEDS ORDERED: diphenhydrAMINE 50 MG/ML VIAL IVP PRN (20:30)
[2020-05-13] MEDS ORDERED: HALOPERIDOL LACT 5 MG/ML VIAL. IM PRN (20:30)
[2020-05-13] MEDS ORDERED: cloNIDine HCL 0.1 MG TABLET PO PRN (20:30)
[2020-05-13 20:32] VITALS: BP 126/90
[2020-05-13] MEDS ORDERED: FLU VACC QS 2020-21(6MOS+)/PF 0.5 ML SYRINGE. VAX IM ONE (22:00)
[2020-05-13 22:17] VITALS: BP 114/79
[2020-05-13 23:00] VITALS: BP 118/83
--- NOTE | 2020-05-13 23:01 | NUR ---
The patient, JACKIE BURDEN, 30 y/o, M admitted by ESTELLA JARQUIN MD, was given written information regarding hospital policies, unit procedures and contact persons. Health history and home medications were reviewed with patient. Bed locked and in lowest position, call light within reach. Valuables were checked and left in room.
[2020-05-14] VITALS (10 sets, daily range): BP systolic 105–132; BP diastolic 73–89
[2020-05-14] MEDS: IV NORMAL SALINE 1,000ML 1,000 ML IV SCH (01:23)
[2020-05-14] MEDS ORDERED: NORMAL SALINE IV SCH (09:00)
[2020-05-14] MEDS ORDERED: MULTIVITAMIN with MINERAL TABLET. PO SCH (09:00)
[2020-05-14] MEDS ORDERED: FOLIC ACID IV SCH (09:00)
[2020-05-14] MEDS ORDERED: THIAMINE IV SCH (09:00)
[2020-05-14] MEDS ORDERED: LORA-254 PO (14:35)
[2020-05-14 15:22] LABS: HEMATOCRIT 42.3 % (39.0-53.0); HEMOGLOBIN 14.4 g/dL (13.0-17.5); RED BLOOD COUNT 3.71 x10^6/uL (4.30-5.70); WHITE BLOOD COUNT 7.3 x10^3/uL (4.0-11.0)
[2020-05-14 15:38] LABS: CALCIUM 8.9 mg/dL (8.5-10.1); CREATININE 0.8 mg/dL (0.7-1.3); GFR 112.8; POTASSIUM 3.2 mmol/L (3.5-5.1)
[2020-05-14 15:46] LABS: ALBUMIN 3.2 g/dL (3.4-5.0); ALBUMIN/GLOBULIN RATIO 0.9 (1.0-1.7); TOTAL PROTEIN 6.8 g/dL (6.4-8.2)
[2020-05-14] MEDS ORDERED: POTASSIUM CHLORIDE 20 MEQ TABLET.ER. PO ONE ×2 (16:00)
--- NOTE | 2020-05-14 17:01 | SSS ---
ADMIT DATE: 05/14/2020 HISTORY OF PRESENT ILLNESS: The patient is a 30-year-old male patient who came to the Emergency Room complaining of nausea, nonbloody, nonbilious vomiting for the last 3 days. Reports he is concerned, he is in alcohol withdrawal and has been attempting to drink smaller amounts of alcohol to reduce his shakes. He states he has not eaten anything in the past 3 days, cannot recall when he last voided, last drink of alcohol was a few hours prior to arriving, he took 2 shots, has never been admitted to inpatient rehabilitation facility. He reports history of alcohol withdrawal with seizures. Normally, he drinks 2 pints of alcohol a day. He has a history of alcohol abuse for more than 7 years. Denies any trauma, falls or head injury. Takes no routine or prescribed medication. Denies any fever, chills, cough, hemoptysis, diarrhea or abdominal pain. He was extensively evaluated in the Emergency Room and has had lab work, which showed that his white cell count was elevated at 16,500, hemoglobin was ____, hematocrit 53, MCV was ____ and platelet was 161,000. His chemistry was mostly unremarkable and the patient was admitted, started on alcohol withdrawal protocol. When I saw him this afternoon, he stated he was doing very well, he has no shakes, he was able to eat and drink and the only complaint was his back pain that is bothered him because of the bed. PAST MEDICAL HISTORY: Unremarkable except for alcohol abuse and marijuana abuse. PAST SURGICAL HISTORY: Significant for apparent surgery during the childhood for his heart, probably congenital heart disease. ALLERGIES: He has no known drug allergies. MEDICATIONS: He is currently on no medication. FAMILY HISTORY: Noncontributory. 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 He continues to smoke cigarettes as well as marijuana. He abuses also cocaine and opiates at times. He drinks more than a pint of alcohol daily. REVIEW OF SYSTEMS: As per history of present illness. PHYSICAL EXAMINATION: GENERAL: On arrival to the Emergency Room, he looked well and was clearly in no apparent respiratory distress. No pallor, jaundice, cyanosis or thyromegaly. No jugular venous distention. No limb edema. VITAL SIGNS: His heart rate was 104, blood pressure was 126/86, temperature was 97.8, respiratory rate was 22 and oxygen saturation was 96% on room air. HEAD, EYES, EARS, NOSE AND THROAT: Showed normocephalic, atraumatic. NECK: Supple. HEART: Showed normal first and second heart sounds. No gallop or murmur. CHEST: Clear to auscultation. No crepitation or rhonchi. ABDOMEN: Distended, soft, nontender. NEUROLOGIC: He was awake, alert, responding appropriately. All cranial nerves intact. EXTREMITIES: He moves extremities without difficulty. He ambulates without assistance or assistive devices. LABORATORY DATA: His lab work on admission showed a white cell count of 16,500, hemoglobin ____, hematocrit 53, MCV ____ and a platelet count of 161,000 with normal manual differential. His chemistry showed serum sodium of 141, potassium 3.4, chloride 90, bicarbonate 23, anion gap of 28, BUN 9, creatinine 1.2, estimated GFR was 70 mL per minute, his glucose 121, calcium was 10, magnesium was 1.9. Total bilirubin, AST, ALT, alkaline phosphatase slightly elevated. Total protein was 9.4, albumin was 4.4. Lipase was 74. His toxic screen showed that his blood alcohol level was actually 151 mg/dL, but negative for all other drugs. His chest x-ray showed that he has no focal airspace consolidation or edema. The patient will repeat all his lab work and will be discharged on a tapering course of Ativan to assist with his withdrawal. FINAL DISCHARGE DIAGNOSES: Alcohol withdrawal syndrome, alcohol dependence, marijuana and cocaine abuse. ESTELLA JARQUIN MD DR: NACHO/kavitha JOB#: [id number] / [id number]
--- NOTE | 2020-05-14 17:31 | NUR ---
Discharge Note: JACKIE BURDEN Discharge instructions and discharge home medications reviewed with Patient and a copy given. All questions have been answered and understanding verbalized. The following instructions and handouts were given: yes Discontinued lines and drains: see other nurses notes Patient discharged to home via POV driven by his
[2020-05-18] MEDS ORDERED: FOLIC ACID 1 MG TABLET PO SCH (09:00)
[2020-05-18] MEDS ORDERED: THIAMINE 100 MG TABLET. PO SCH (09:00)
[2020-05-18] MEDS ORDERED: THIAMINE INJ 100 MG in IV NORMAL SALINE 50ML 50 ML IV SCH (09:00)
[2020-05-18] MEDS ORDERED: THIAMINE IM 200 MG/2 ML VIAL. IM SCH (09:00)
== END 2020-05-14 16:25 | disposition home or self-care (01) | DRG 897 ==
LOC: ER 08:42 → ICU 14:23
PROVIDERS: ADMIT Internal Medicine; ATTEND Internal Medicine
DX: F10.231 Alcohol dependence with withdrawal delirium (principal); F12.10 Cannabis abuse, uncomplicated; F14.10 Cocaine abuse, uncomplicated; F17.210 Nicotine dependence, cigarettes, uncomplicated; Z79.899 Other long term (current) drug therapy
CPT/HCPCS: 36415; 71045; 80053; 80307; 83690; 83735; 85007; 85025; 85027; 90471; 90686; 93005; 96365; 96375; 99406; G0480; J1630; J2060; J2405; J2765; J3490; J7120; 99285-25; J7030

== ENCOUNTER 2021-07-16 04:55 | Emergency (ER) | payer SELFPAY ==
[~2021-07-16] VITALS: Ht 165.1 cm; Wt 56.4 kg
[~2021-07-16 04:55] MED LIST changes: +LORA-254 PO
--- NOTE | 2021-07-16 05:09 | PHYS DOC ---
Past History Past Medical History: Alcoholism, Seizure Additional Past Medical Histor: alcohol abuse Past Surgical History: No Surgical History Smoking: Cigarettes Alcohol Use: Heavy Drug Use: Cocaine, Marijuana, Opiates Adult General HPI HPI Patient is a 31-year-old male who presents with a chief complaint of nausea, vom iting and pleuritic chest pain has been going on about a day. Review of Systems Review of Systems Review of systems otherwise unremarkable except noted in HPI Allergies Allergies Allergies Coded Allergies Type Severity Reaction Last Updated Verified No Known Drug Allergies 10/01/19 No Physical Exam Physical Exam Constitutional: Well developed, well nourished, no acute distress, non-toxic appearance. [] HENT: Normocephalic, atraumatic, bilateral external ears normal, oropharynx moist, no oral exudates, nose normal. [] Eyes: PERRLA, EOMI, conjunctiva normal, no discharge. [] Neck: Normal range of motion, no tenderness, supple, no stridor. [] Cardiovascular:Heart rate regular rhythm, no murmur [] Lungs & Thorax: Bilateral breath sounds clear to auscultation [] Abdomen: Bowel sounds normal, soft, no tenderness, no masses, no pulsatile masses. [] Skin: Warm, dry, no erythema, no rash. [] Back: No tenderness, no CVA tenderness. [] Extremities: No tenderness, no cyanosis, no clubbing, ROM intact, no edema. [] Neurologic: Alert and oriented X 3, normal motor function, normal sensory function, no focal deficits noted. [] Psychologic: Affect normal, judgement normal, mood normal. [] EKG EKG [] Radiology/Procedures Radiology/Procedures [] Heart Score C/O Chest Pain: Yes HEART Score for Chest Pain: HEART Score for Chest Pain Response (Comments) Value History Slighlty/Non-Suspicious 0 Age < 45 0 Risk Factors 1 or 2 Risk Factors 1 Troponin < Normal Limit 0 Total 1 Risk Factors: Risk Factors: DM, Current or recent (<one month) smoker, HTN, HLP, family history of CAD, obesity. Risk Scores: Risk Factors: DM, Current or recent (<one month) smoker, HTN, HLP, family history of CAD, obesity. Course & Med Decision Making Course & Med Decision Making Patient is a 31-year-old male who presents with a chief complaint of pleuritic chest pain with nausea and vomiting Vital signs nonconcerning. Physical exam noted above. Started on IV fluid resuscitation and given nausea medicine. EKG with a rate of 68, QRS of 86, QTc of 434, no STEMI. Dragon Disclaimer Dragon Disclaimer This electronic medical record was generated, in whole or in part, using a voice recognition dictation system. Departure Departure: Referrals: PCP,NO (PCP) ANGELITA TOUSSAINT MD Jul 16, 2021 05:09
[2021-07-16] MEDS ORDERED: IV RINGERS SOLUTION,LACTATED 1,000 ML IV ONE ×2 (05:15→06:30)
[2021-07-16] MEDS ORDERED: ONDANSETRON PF 4 MG/2 ML VIAL. IVP ONE ×2 (05:15→07:00)
[2021-07-16 05:43] LABS: BASO # 0.1 x10^3/uL (0.0-0.2); BASO % 1 % (0-3); EOS % 0 % (0-3); HEMATOCRIT 48.1 % (39.0-53.0); HEMOGLOBIN 16.5 g/dL (13.0-17.5); LYMPH % 14 % (24-48); MEAN CORPUSCULAR HEMOGLOBIN 37 pg (25-35); MEAN CORPUSCULAR HGB CONC 34 g/dL (31-37); MEAN CORPUSCULAR VOLUME 109 fL (79-100); MONO # 0.9 x10^3/uL (0.0-1.1); MONO % 13 % (0-9); NEUT % 72 % (31-73); PLATELET COUNT 103 x10^3/uL (140-400); RED BLOOD COUNT 4.42 x10^6/uL (4.30-5.70); WHITE BLOOD COUNT 6.9 x10^3/uL (4.0-11.0)
[2021-07-16 05:49] LABS: CALCIUM 10.6 mg/dL (8.5-10.1); CREATININE 0.8 mg/dL (0.7-1.3); POTASSIUM 3.3 mmol/L (3.5-5.1)
--- NOTE | 2021-07-16 05:49 | EKG ---
[address] [address] Test Date: 2021-07-16 Test Time: 05:13:21 Pat Name: JACKIE BURDEN Department: Room: Gender: M Power Technician: PETER : 1990 Requested By: ANGELITA TOUSSAINT Order Number: [id number] Reading MD: Measurements Intervals [place] Rate: 68 P: [place]: QRS: 92 QRSD: 86 T: 75 QT: 408 QTc: 434 Interpretive Statements IRREGULAR RHYTHM, NO P-WAVE FOUND RIGHTWARD AXIS OTHERWISE NORMAL ECG RI6.02 No previous ECG available for comparison
[2021-07-16 05:55] LABS: ALBUMIN 4.3 g/dL (3.4-5.0); TOTAL BILIRUBIN 0.8 mg/dL (0.2-1.0); TOTAL PROTEIN 8.5 g/dL (6.4-8.2)
[2021-07-16] MEDS ORDERED: IOHEXOL 300 MG/ML 75 ML VIAL. IV ONE (06:15)
[2021-07-16] MEDS ORDERED: CONTRAST GIVEN. MC PRN (06:15)
[2021-07-16] MEDS ORDERED: METOCLOPRAMIDE HCL 10 MG/2 ML VIAL. ONE (06:24)
[2021-07-16] MEDS ORDERED: HYDROcodone/APAP 5/325MG 1 TAB TABLET ONE (06:25)
[2021-07-16] MEDS ORDERED: FAMOTIDINE 20 MG/2 ML VIAL IVP ONE (06:30)
[2021-07-16] MEDS ORDERED: HYDROcodone/APAP 5/325MG 1 TAB TABLET PO ONE (06:30)
[2021-07-16] MEDS ORDERED: METOCLOPRAMIDE HCL 10 MG/2 ML VIAL. IVP ONE (06:30)
[2021-07-16 07:00] VITALS: BP 108/72
--- NOTE | 2021-07-16 07:04 | RAD ---
Study: XR CHEST 1V Indication: Chest pain. Comparison: 05/13/2020 Findings: The cardiomediastinal silhouette and peggy are within normal limits. No localized airspace opacity, pl eural effusion or pneumothorax. Bilateral nipple shadows. Impression: No acute radiographic abnormality of the chest. Electronically signed by: GUS CLAY MD (07/16/2021 7:01 AM) [facility]
--- NOTE | 2021-07-16 07:09 | RAD ---
Study: CT abdomen/pelvis with intravenous contrast Indication: Epigastric pain. History of pancreatitis. Comparison: 03/11/2020 Technique: Helical CT imaging performed of the abdomen and pelvis after the intravenous administratio n of 75 cc Omnipaque 300 contrast. Sagittal and coronal reformats were obtained. One or more of the following individualized dose reduction techniques were utilized for this examinat ion: 1. Automated exposure control 2. Adjustment of the mA and/or kV according to patient size 3. Use of iterative reconstruction technique. Findings: Slightly less pronounced wall thickening of the distal esophagus. Unremarkable visualized lungs. Diff use hepatic steatosis. Mild hepatomegaly. Unremarkable gallbladder and biliary tree. Homogeneous atte nuation of the pancreas. Within normal limits size of the spleen. No adrenal gland mass. Symmetric renal parenchymal enhancement. Millimetric nonobstructing intrarenal stone at the lower sami e on both the right and left. Unremarkable bladder and prostate. Small amount of well-formed stool scattered throughout the colon. Unremarkable appendix, image 56 ser ies 2. Small bowel wall thickening mainly of the proximal jejunum. No pathologic dilatation or pneuma tosis. No gastric wall emphysema. No acute major vascular abnormality. No lymphadenopathy. No free fluid or pneumoperitoneum. Transitional lumbosacral anatomy with lumbarization of S1. Mild retrolisthesis of L5 on S1. Unilatera l S1 pars defect on the left. Impression: 1. There are no findings to suggest acute pancreatitis. 2. Circumferential wall thickening of the proximal jejunum could be related to an enteritis. No chyna l obstruction. 3. Diffuse hepatic steatosis and mild hepatomegaly. 4. Slightly less pronounced distal esophageal wall thickening from the 2019 comparison. 5. Small nonobstructing intrarenal stone at the lower pole of both kidneys. Electronically signed by: GUS CLAY MD (07/16/2021 7:07 AM) [facility] [place]
[2021-07-16] MEDS ORDERED: FAMO-63 PO (07:22)
[2021-07-16] MEDS ORDERED: SUCR1TAB35 PO (07:22)
[2021-07-16] MEDS ORDERED: DIAZ10TA PO (07:22)
--- NOTE | 2021-07-16 07:22 | PHYS DOC ---
Past History Past Medical History: Alcoholism, Seizure Additional Past Medical Histor: alcohol abuse Past Surgical History: No Surgical History Smoking: Cigarettes Alcohol Use: Heavy Drug Use: Cocaine, Marijuana, Opiates General Adult EDM: Chief Complaint: CHEST PAIN HPI: HPI: Please see note by Dr. Toussaint for initial H&P Current Medications: Current Meds: Current Medications Medications (Trade) Dose Ordered Sig/Maria E Start Time Stop Time Status Last Admin Dose Admin Acetaminophen/ Hydrocodone Bitart (Lortab 5/325) 2 tab 1X ONCE 07/16/21 06:30 07/16/21 06:34 DC 07/16/21 07:04 2 TAB Famotidine (Pepcid Vial) 20 mg 1X ONCE 07/16/21 06:30 07/16/21 06:34 DC 07/16/21 07:05 20 MG Fentanyl Citrate (Fentanyl 2ml Vial) 50 mcg 1X ONCE 07/16/21 05:45 07/16/21 05:46 DC Info (Do NOT chart on this entry -- for MONITORING) 1 each PRN DAILY PRN 07/16/21 06:15 07/18/21 06:14 Iohexol (Omnipaque 300 Mg/ml) 75 ml 1X ONCE 07/16/21 06:15 07/16/21 06:16 DC 07/16/21 06:35 75 ML Lactated Ringer's 1,000 ml @ 1,000 mls/hr 1X ONCE 07/16/21 06:30 07/16/21 07:29 07/16/21 06:30 1,000 MLS/HR Metoclopramide HCl (Reglan Vial) 10 mg 1X ONCE 07/16/21 06:30 07/16/21 06:34 DC 07/16/21 07:04 10 MG Ondansetron HCl (Zofran) 4 mg 1X ONCE 07/16/21 07:00 07/16/21 07:07 DC 07/16/21 07:04 4 MG Allergies: Allergies: Allergies Coded Allergies Type Severity Reaction Last Updated Verified No Known Drug Allergies 07/16/21 No Physical Exam: PE: Current Patient Data: Labs: Laboratory Tests Test 07/16/21 05:25 White Blood Count 6.9 x10^3/uL (4.0-11.0) Red Blood Count 4.42 x10^6/uL (4.30-5.70) Hemoglobin 16.5 g/dL (13.0-17.5) Hematocrit 48.1 % (39.0-53.0) Mean Corpuscular Volume 109 fL (79-100) H Mean Corpuscular Hemoglobin 37 pg (25-35) H Mean Corpuscular Hemoglobin Concent 34 g/dL (31-37) Red Cell Distribution Width 14.0 % (11.5-14.5) Platelet Count 103 x10^3/uL (140-400) L Neutrophils (%) (Auto) 72 % (31-73) Lymphocytes (%) (Auto) 14 % (24-48) L Monocytes (%) (Auto) 13 % (0-9) H Eosinophils (%) (Auto) 0 % (0-3) Basophils (%) (Auto) 1 % (0-3) Neutrophils # (Auto) 5.0 x10^3uL (1.8-7.7) Lymphocytes # (Auto) 1.0 x10^3/uL (1.0-4.8) Monocytes # (Auto) 0.9 x10^3/uL (0.0-1.1) Eosinophils # (Auto) 0.0 x10^3/uL (0.0-0.7) Basophils # (Auto) 0.1 x10^3/uL (0.0-0.2) Sodium Level 139 mmol/L (136-145) Potassium Level 3.3 mmol/L (3.5-5.1) L Chloride Level 93 mmol/L (98-107) L Carbon Dioxide Level 31 mmol/L (21-32) Anion Gap 15 (6-14) H Blood Urea Nitrogen 9 mg/dL (8-26) Creatinine 0.8 mg/dL (0.7-1.3) Estimated GFR (Cockcroft-Gault) 112.0 BUN/Creatinine Ratio 11 (6-20) Glucose Level 138 mg/dL (70-99) H Calcium Level 10.6 mg/dL (8.5-10.1) H Total Bilirubin 0.8 mg/dL (0.2-1.0) Aspartate Amino Transferase (AST) 76 U/L (15-37) H Alanine Aminotransferase (ALT) 54 U/L (16-63) Alkaline Phosphatase 135 U/L (46-116) H Troponin I High Sensitivity 4 ng/L (4-75) Total Protein 8.5 g/dL (6.4-8.2) H Albumin 4.3 g/dL (3.4-5.0) Albumin/Globulin Ratio 1.0 (1.0-1.7) Lipase 92 U/L (73-393) Vital Signs: Vital Signs Date Time Temp Pulse Resp B/P (MAP) Pulse Ox O2 Delivery O2 Flow Rate FiO2 07/16/21 05:10 98.0 66 26 118/85 (96) 99 Room Air EKG: EKG: [] Radiology/Procedures: Radiology/Procedures: [] Impressions: PATIENT: JACKIE BURDEN ACCOUNT: [id number] : 1990 LOCATION: ER AGE: 31 SEX: M EXAM STATUS: REG ER ORD. PHYSICIAN: FELIX KENNY MD REASON: PROCEDURE: PORTABLE CHEST 1V Study: XR CHEST 1V Indication: Chest pain. Comparison: 05/13/2020 Findings: The cardiomediastinal silhouette and peggy are within normal limits. No localized airspace opacity, pleural effusion or pneumothorax. Bilateral nipple shadows. Impression: No acute radiographic abnormality of the chest. Electronically signed by: GUS CLAY MD (07/16/2021 7:01 AM) [facility] DICTATED AND SIGNED BY: GUS CLAY MD DATE: 07/16/21 0701 CC: PCP,NO; FELIX KENNY MD ~ PATIENT: JACKIE BURDEN ACCOUNT: [id number] : 1990 LOCATION: ER AGE: 31 SEX: M EXAM STATUS: REG ER ORD. PHYSICIAN: ANGELITA TOUSSAINT MD REASON: OMNI 300,75ML IV.Epigastric pain, H/O pancreatitis PROCEDURE: CT ABD PELV W/ IV CONTRST ONLY Study: CT abdomen/pelvis with intravenous contrast Indication: Epigastric pain. History of pancreatitis. Comparison: 03/11/2020 Technique: Helical CT imaging performed of the abdomen and pelvis after the intravenous administration of 75 cc Omnipaque 300 contrast. Sagittal and coronal reformats were obtained. One or more of the following individualized dose reduction techniques were utilized for this examination: 1. Automated exposure control 2. Adjustment of the mA and/or kV according to patient size 3. Use of iterative reconstruction technique. Findings: Slightly less pronounced wall thickening of the distal esophagus. Unremarkable visualized lungs. Diffuse hepatic steatosis. Mild hepatomegaly. Unremarkable gallbladder and biliary tree. Homogeneous attenuation of the pancreas. Within normal limits size of the spleen. No adrenal gland mass. Symmetric renal parenchymal enhancement. Millimetric nonobstructing intrarenal stone at the lower pole on both the right and left. Unremarkable bladder and prostate. Small amount of well-formed stool scattered throughout the colon. Unremarkable appendix, image 56 series 2. Small bowel wall thickening mainly of the proximal jejunum. No pathologic dilatation or pneumatosis. No gastric wall emphysema. No acute major vascular abnormality. No lymphadenopathy. No free fluid or pneumoperitoneum. Transitional lumbosacral anatomy with lumbarization of S1. Mild retrolisthesis of L5 on S1. Unilateral S1 pars defect on the left. Impression: 1. There are no findings to suggest acute pancreatitis. 2. Circumferential wall thickening of the proximal jejunum could be related to an enteritis. No bowel obstruction. 3. Diffuse hepatic steatosis and mild hepatomegaly. 4. Slightly less pronounced distal esophageal wall thickening from the 2020 comparison. 5. Small nonobstructing intrarenal stone at the lower pole of both kidneys. Electronically signed by: GUS CLAY MD (07/16/2021 7:07 AM) [facility] DICTATED AND SIGNED BY: GUS CLAY MD DATE: 07/16/21 0701 CC: ANGELITA TOUSSAINT MD; PCP,NO; FELIX KENNY MD ~ Heart Score: C/O Chest Pain: N/A Risk Factors: Risk Factors: DM, Current or recent (<one month) smoker, HTN, HLP, family hi story of CAD, obesity. Risk Scores: Score 0 - 3: 2.5% MACE over next 6 weeks - Discharge Home Score 4 - 6: 20.3% MACE over next 6 weeks - Admit for Clinical Observation Score 7 - 10: 72.7% MACE over next 6 weeks - Early Invasive Strategies Course & Med Decision Making: Course & Med Decision Making Pertinent Labs and Imaging studies reviewed. (See chart for details) [] This is a 31-year-old male with epigastric pain. Work-up is consistent with alcohol gastritis. CT was negative for any surgical process and labs are otherwise unrevealing. Patient was given Zofran and Reglan as well as Pepcid and [place] in order to alleviate his symptoms. We will discharge him with prescriptions for Pepcid and Carafate as well as for Valium for potential alcohol withdrawal. Patient is encouraged to quit drinking and follow-up with his primary care physician as soon as is feasible. Return to the emergency department if symptoms become worse or other concerns arise, he is stable for discharge at this time. Dragon Disclaimer: Dragon Disclaimer: This electronic medical record was generated, in whole or in part, using a voice recognition dictation system. Departure Departure: Impression: Primary Impression: Alcoholic gastritis Additional Impression: Alcohol dependence Disposition: HOME / SELF CARE / HOMELESS Condition: STABLE Referrals: PCP,NO (PCP) Patient Instructions: Alcohol Problems, Alcohol Withdrawal, Alcoholic Gastritis-Brief, Gastritis, Adult Scripts Diazepam (VALIUM) 10 Mg Tablet 10 MG PO TID PRN for ALCOHOL WITHDRAWAL, #20 TAB Prov: FELIX KENNY MD 07/16/21 Famotidine (PEPCID) 20 Mg Tablet 1 TAB PO BID for abd pain, #60 TAB 3 Refills Prov: FELIX KENNY MD 07/16/21 Sucralfate (CARAFATE) 1 Gm Tablet 1 GM PO TID for abdominal pain for 30 Days, #90 TAB Prov: FELIX KENNY MD 07/16/21 FELIX KENNY MD Jul 16, 2021 07:22
[2021-07-16 07:42] LABS: CLARITY,URINE CLEAR; COLOR,URINE YELLOW; GLUCOSE,URINE 500 mg/dL (NEG); NITRITE,URINE NEG (NEG); UROBILINOGEN,URINE 0.2 mg/dL (0.2 mg/dL)
[2021-07-16 07:43] LABS: BACTERIA,URINE 0 /HPF (0-FEW); SQUAMOUS EPITHELIAL CELL,UR OCC /LPF; WBC,URINE 0 /HPF (0-4)
== END 2021-07-16 07:42 | disposition home or self-care (01) ==
LOC: ER 04:55
DX: K29.20 Alcoholic gastritis without bleeding (principal); F10.20 Alcohol dependence, uncomplicated; F17.210 Nicotine dependence, cigarettes, uncomplicated; Y90.9 Presence of alcohol in blood, level not specified
CPT/HCPCS: 36415; 71045; 74177; 80053; 81001; 83690; 84484; 85025; 93005; 96361; 96374; 96375; 96376; 99285; J2405; J2765; J3490; J7120; Q9967